=== PATIENT | female | born 1940 | race Hispanic/Latino ===

== ENCOUNTER 2017-10-09 02:59 | Inpatient (IN) | payer MEDICARE ==
[2017-10-09 03:00] VITALS: BMI 27.4
--- NOTE | 2017-10-09 03:23 | C.PDOC ---
History Of Present Illness The patient is brought to the ED by EMS for evaluation after she was found wandering the streets prior to arrival. Patient does not know why or how she ended up in the streets. She states she was watching a baseball game at [employer] when she asked someone to call a cab for her because she did not remember how to get home. Patient denies fever, chills, nausea, vomiting, and headache at this time. Patient admits she smokes one pack of cigarettes per day. Time Seen by Provider: 10/09/17 03:23 Chief Complaint (Nursing): Altered Mental Status History Per: Patient, EMS History/Exam Limitations: None Onset/Duration Of Symptoms: Unknown Onset Of Symptoms: Cannot Confirm Onset Current Symptoms Are (Timing): Still Present Usual Baseline: Unknown Exacerbating Factor(s): Unknown Use Of Anticoag/Antiplatelets: No Speech Is: Normal Severity: None Pain Scale Rating Of: 0 Recent travel outside of the [place]: No Additional History Per: Patient, EMS Associated Symptoms: denies: Fever, Chills, Vomiting Past Medical History Reviewed: Historical Data, Nursing Documentation, Vital Signs Vital Signs: Last Vital Signs Temp 98.7 F 10/09/17 05:35 Pulse 76 10/09/17 05:35 Resp 16 10/09/17 05:35 BP 123/82 10/09/17 05:35 Pulse Ox 97 10/09/17 06:24 - Medical History PMH: Anemia, Depression, Emphysema, Hiatal Hernia, HTN, Hypercholesterolemia, Rheumatoid Arthritis Denies: HIV, Chronic Kidney Disease Surgical History: Cholecystectomy - [facility] Procedures CLOSED RED-INT FIX FEMUR (10/15/14) INTRODUCTION OF SERUM/TOX/VACCINE INTO MUSCLE, PERC APPROACH (04/02/16) OTHER LOCAL DESTRUC SKIN (10/18/14) PACKED CELL TRANSFUSION (10/15/14) PHYSICAL THERAPY NEC (10/18/14) RECREATIONAL THERAPY (10/18/14) VACCINATION NEC (10/15/14) Family History: States: Unknown Family Hx - Social History Hx Tobacco Use: Yes Hx Alcohol Use: No Hx Substance Use: No - Immunization History Hx Tetanus Toxoid Vaccination: No Hx Influenza Vaccination: No Hx Pneumococcal Vaccination: Yes (2014) Review Of Systems Constitutional: Negative for: Fever, Chills Cardiovascular: Negative for: Chest Pain, Palpitations Respiratory: Negative for: Cough, Shortness of Breath Gastrointestinal: Negative for: Nausea, Vomiting, Abdominal Pain Skin: Negative for: Rash, Lesions, Jaundice, Bruising Neurological: Positive for: Other (found wandering in street ). Negative for: Weakness, Numbness, Headache Physical Exam - Physical Exam Appears: Non-toxic, No Acute Distress Skin: Warm, Dry Head: Normacephalic Eye(s): bilateral: Normal Inspection Oral Mucosa: Moist Teeth: No Normal Dentition (poor ) Neck: Supple Chest: Symmetrical, No Deformity, No Tenderness Cardiovascular: Rhythm Regular, No Murmur Respiratory: No Rales, No Rhonchi, No Wheezing Back: Other (kyphotic ) Extremity: Normal ROM, Capillary Refill (less than 2 seconds ) Neurological/Psych: Oriented x3 Gait: With Assistance (walker) ED Course And Treatment - Laboratory Results Result Diagrams: 10/09/17 04:23 08 04:23 O2 Sat by Pulse Oximetry: 97 (on RA) Pulse Ox Interpretation: Normal - Radiology CXR: Interpreted by Me, Viewed By Me CXR Interpretation: Yes: Other (kyphosis). No: Infiltrates, Fracture, Pnemothorax Progress Note: Bloodwork, urinalysis, CT Head, CXR, EKG ordered and reviewed. Disposition Counseled Patient/Family Regarding: Studies Performed, Diagnosis - Disposition Disposition Time: 03:23 Condition: FAIR Forms: [facility] (Thai) - Clinical Impression Clinical Impression: Forgetfulness - Scribe Statement The provider has reviewed the documentation as recorded by the Scribe (Brenda Sterling) Provider Attestation: All medical record entries made by the Scribe were at my direction and personally dictated by me. I have reviewed the chart and agree that the record accurately reflects my personal performance of the history, physical exam, medical decision making, and the department course for this patient. I have also personally directed, reviewed, and agree with the discharge instructions and disposition. Physician Patient Turnover Patient Signed Over To: Leonor Brock Handoff Comments: awaiting call back from daughter, and dispo
[2017-10-09 04:26] LABS: BASO # 0.1 K/uL (0.0-0.2); BASO % 0.5 % (0.0-2.0); HEMOGLOBIN 11.8 g/dL (11.0-16.0); LYMPH # 1.3 K/uL (1.0-4.3); LYMPH % 10.3 % (20.0-40.0); MEAN CORPUSCULAR HEMOGLOBIN 23.3 pg (27.0-31.0); MEAN CORPUSCULAR HGB CONC 31.9 g/dL (33.0-37.0); MEAN PLATELET VOLUME 8.9 fL (7.2-11.7); MONO # 0.8 K/uL (0.0-0.8); MONO % 5.9 % (0.0-10.0); NEUT # 10.8 K/uL (1.8-7.0); NEUT % 83.3 % (50.0-75.0); RBC 5.04 Mil/uL (3.80-5.20); RED CELL DISTRIBUTION WIDTH 16.5 % (11.5-14.5)
[2017-10-09 04:28] LABS: MEAN CELL VOLUME 73.2 fL (81.0-99.0)
[2017-10-09 04:35] LABS: INR 1.2
[2017-10-09 04:40] LABS: ALBUMIN 4.5 g/dL (3.5-5.0); ALT/SGPT 21 U/L (9-52); AST/SGOT 20 U/L (14-36); BLOOD UREA NITROGEN 20 mg/dL (7-17); CALCIUM 9.6 mg/dl (8.6-10.4); GFR NON-AFRICAN AMERICAN > 60
[2017-10-09 06:13] LABS: SQUAMOUS EPITHIAL 14 /hpf (0-5); URINE BACTERIA RARE (<OCC); URINE BILIRUBIN NEGATIVE (NEGATIVE); URINE BLOOD NEGATIVE (NEGATIVE); URINE CLARITY Hazy (Clear); URINE COLOR Yellow (YELLOW); URINE GLUCOSE (UA) NORMAL (Normal); URINE LEUKOCYTE ESTERASE 3+ Leu/uL (Negative); URINE PROTEIN 1+ mg/dL (NEGATIVE)
[2017-10-09 06:24] LABS: BARBITURATES, UR NEGATIVE (NEGATIVE); OPIATES, UR NEGATIVE (NEGATIVE); PHENCYCLIDINE, UR NEGATIVE (NEGATIVE)
[2017-10-09 07:02] LABS: BENZODIAZEPINES, UR POSITIVE (NEGATIVE)
[2017-10-09] MEDS ORDERED: Sodium Chloride 0.9% 250 ML IV ONE (08:19)
--- NOTE | 2017-10-09 09:36 | RAD ---
Date of service: 10/09/2017 PROCEDURE: CHEST RADIOGRAPH, 1 VIEW HISTORY: AMS COMPARISON: None available. FINDINGS: LUNGS: No acute pulmonary disease appreciated bilaterally. PLEURA: No pneumothorax or pleural fluid seen. CARDIOVASCULAR: Stable cardiomediastinal silhouette including retrocardiac density suggests of a large hiatal hernia. OSSEOUS STRUCTURES: No significant abnormalities. VISUALIZED UPPER ABDOMEN: Normal. OTHER FINDINGS: None. IMPRESSION: No interval acute cardiopulmonary disease. Large hiatal hernia reiterated.
--- NOTE | 2017-10-09 12:03 | CT ---
Date of service: 10/09/2017 PROCEDURE: CT HEAD WITHOUT CONTRAST. HISTORY: AMS COMPARISON: Noncontrast head CT 10/13/2011. TECHNIQUE: Axial computed tomography images were obtained through the head/brain without intravenous contrast. Radiation dose: Total exam DLP = 1004.25 mGy-cm. This CT exam was performed using one or more of the following dose reduction techniques: Automated exposure control, adjustment of the mA and/or kV according to patient size, and/or use of iterative reconstruction technique. FINDINGS: HEMORRHAGE: No intracranial hemorrhage. BRAIN: The ventricular sulcal and cisternal spaces are identified once again to be dilated however the sulci are not proportionally dilated relative to the ventricles, particularly the lateral ventricles, and may reflect an element normal pressure hydrocephalus. Central atrophy is also possible and is the differential diagnosis. Clinically correlate further. Nevertheless, adequate corticomedullary differentiation is reiterated and there is no cortical edema identified. 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 Posterior fossa contents are unremarkable including the brainstem. VENTRICLES: Unremarkable. No hydrocephalus. CALVARIUM: Unremarkable. PARANASAL SINUSES: Unremarkable as visualized. No significant inflammatory changes. MASTOID AIR CELLS: Unremarkable as visualized. No inflammatory changes. OTHER FINDINGS: None. IMPRESSION: No definite acute interval findings with age related neuro degenerative changes identified once again. Disproportionate ventricular volume may reflect an element normal pressure hydrocephalus and clinical correlation is recommend once again. Overall pattern does not appear significantly changed compared to 06/13/2011. Discordant preliminary report by Eloy worrell 10/09/2017.
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
[2017-10-09] MEDS: Sodium Chloride 0.9% 1,000 ML IV SCH ×2 (13:37→23:30)
[2017-10-09] MEDS ORDERED: Sodium Chloride 0.9% 1,000 ML ONE (13:38)
[2017-10-09 15:19] VITALS: RESP 20
[2017-10-09] MEDS: Lactobacillus Acidophilus 500 MU Cap PO SCH (18:11)
[2017-10-09 20:05] LABS: URINE BACTERIA RARE (<OCC); URINE BILIRUBIN NEGATIVE (NEGATIVE); URINE BLOOD NEGATIVE (NEGATIVE); URINE CLARITY Clear (Clear); URINE COLOR Yellow (YELLOW); URINE GLUCOSE (UA) NORMAL (Normal); URINE LEUKOCYTE ESTERASE NEG Leu/uL (Negative); URINE PROTEIN NEGATIVE (NEGATIVE)
[2017-10-10 07:47] LABS: BASO % 0.4 % (0.0-2.0); EOS % 0.8 % (0.0-4.0); HEMOGLOBIN 10.7 g/dL (11.0-16.0); LYMPH # 1.4 K/uL (1.0-4.3); LYMPH % 23.5 % (20.0-40.0); MEAN CELL VOLUME 74.3 fL (81.0-99.0); MEAN CORPUSCULAR HEMOGLOBIN 24.1 pg (27.0-31.0); MEAN CORPUSCULAR HGB CONC 32.4 g/dL (33.0-37.0); MEAN PLATELET VOLUME 9.6 fL (7.2-11.7); MONO # 0.5 K/uL (0.0-0.8); NEUT # 3.8 K/uL (1.8-7.0); NEUT % 66.3 % (50.0-75.0); NRBC % 0.1 % (0.0-2.0); RBC 4.43 Mil/uL (3.80-5.20); RED CELL DISTRIBUTION WIDTH 16.3 % (11.5-14.5)
[2017-10-10 07:48] LABS: WHITE BLOOD COUNT 5.8 K/uL (4.8-10.8)
[2017-10-10 07:51] LABS: ALB/GLOB RATIO 1.1 (1.0-2.1); ALBUMIN 3.8 g/dL (3.5-5.0); ALT/SGPT 21 U/L (9-52); AST/SGOT 23 U/L (14-36); BLOOD UREA NITROGEN 12 mg/dL (7-17); CALCIUM 8.7 mg/dl (8.6-10.4); GFR NON-AFRICAN AMERICAN > 60; HDL CHOLESTEROL 36 mg/dL (30-70)
[2017-10-10 07:57] LABS: LDL CHOLESTEROL 100 mg/dL (0-129)
[2017-10-10] MEDS ORDERED: Potassium Chloride 20 mEq ER Tab PO ONE (09:00)
--- NOTE | 2017-10-10 09:06 | CP.PCM.PN ---
<Mack Sheppard - Last Filed: 10/10/17 19:16> Subjective - Date & Time of Evaluation Date of Evaluation: 10/10/17 Time of Evaluation: 09:00 - Subjective Subjective: Medicine Progress Note for Mack Jaeger PGY-1 Patient was seen and examined at bedside this AM. No acute overnight events reported. Patient reiterated that she got confused when walking outside to a park and was unable to get back home. Patient states that she lives on her own at [facility] and that her daughter lives in [place]. Several attempts have been made to contact daughter with no success. No fevers or chills , headaches, dizziness, chest pain, palpitations, SOB, cough, abdominal pain, changes in vision or hearing. Objective - Vital Signs/Intake and Output Vital Signs (last 24 hours): Temp Pulse Resp BP Pulse Ox 98.4 F 78 20 146/83 96 10/10/17 08:09 10/10/17 08:09 10/10/17 08:09 10/10/17 08:09 10/10/17 08:09 Intake and Output: 10/10/17 10/10/17 06:59 18:59 Intake Total 540 Output Total 400 Balance 140 - Medications Medications: Current Medications Acetaminophen (Tylenol 325mg Tab) 650 mg PO Q6 PRN PRN Reason: Fever >100.4 F Ciprofloxacin (Cipro) 250 mg PO BID [facility] PRN Reason: Protocol Last Admin: 10/09/17 18:37 Dose: 250 mg Enoxaparin Sodium (Lovenox) 40 mg SC DAILY [facility] Sodium Chloride (Sodium Chloride 0.9%) 1,000 mls @ 100 mls/hr IV .Q10H [facility] Last Admin: 10/09/17 23:30 Dose: Not Given Lactobacillus Acidophilus (Bacid Acidophilus) 1 cap PO BID [facility] Last Admin: 10/09/17 18:11 Dose: 1 cap Nicotine (Nicoderm Cq) 1 patch TD DAILY [facility] Last Admin: 10/09/17 18:12 Dose: 1 patch Pneumococcal Polyvalent Vaccine (Pneumovax 23 Vaccine) 0.5 ml IM .ONCE ONE Stop: 10/10/17 10:01 Quetiapine Fumarate (Seroquel) 25 mg PO ONCE ONE Stop: 08/27/18 13:01 - Labs Labs: 10/10/17 07:15 10/10/17 07:15 PT 13.0 SECONDS (9.7-12.2) H 10/09/17 04:23 INR 1.2 10/09/17 04:23 APTT 36 SECONDS (21-34) H 10/09/17 04:23 - Constitutional Appears: Non-toxic, No Acute Distress - Head Exam Head Exam: ATRAUMATIC, NORMAL INSPECTION - Eye Exam Eye Exam: Normal appearance - ENT Exam ENT Exam: Mucous Membranes Moist Additional comments: Poor dentition - Neck Exam Neck Exam: Normal Inspection - Respiratory Exam Respiratory Exam: Clear to Ausculation Bilateral, NORMAL BREATHING PATTERN - Cardiovascular Exam Cardiovascular Exam: REGULAR RHYTHM, +S1, +S2 - GI/Abdominal Exam GI & Abdominal Exam: Soft, Normal Bowel Sounds. absent: Distended, Firm, Guarding, Rigid, Tenderness, Mass - Extremities Exam Extremities Exam: Normal Capillary Refill, Normal Inspection. absent: Pedal Edema, Tenderness - Neurological Exam Neurological Exam: Alert, Awake, Oriented x3 - Psychiatric Exam Psychiatric exam: Agitated - Skin Skin Exam: Dry, Intact, Normal Color, Warm Assessment and Plan - Assessment and Plan (Free Text) Assessment: 77 yo F with PMHx of HTN, HLD, multiple falls, PE who was brought in by ambulance for altered mental status. Patient was found wandering the streets. Plan: 1. Elder Safety Disposition - Patient's daughter has been called multiple times on multiple numbers (listed in chart). - Per H&P, [place] police went to daughter's house but no one was there, per ED physician. - [facility] contacted and stated that patient is not very well taken care off and they are unsure about her current living situation. - Has hx of Adult Protective Services called on her multiple times in the past, per group home commercial housekeeper. Pt has been living with daughter for past few weeks but is unreachable at this time. Because of all these reasons, there is concern that this may be an abandonment issues as oppose to patient getting lost. - Case management and social work is aware of case and on board - UDS negative on admission, negative BAL 2. Possible UTI - UA on admission: positive for WBC, LE, urobilinogen and SE -repeat UA negative - Elevated WBC count on admission - continue w/ Cipro 250 mg BID - urine culture via straight cath: multiple species -consider repeat cx - Tylenol prn for fever 3. Possible NPH - Initial CT head: no acute changes, disproportionate ventricular volume may suggest normal pressure hydrocephalus - Compared to CT from 2013, no significant increased in ventricles noted - Neurology consult (Dr. Celestin)on board 4. HTN - Unsure about pts pharmacy - Will consider starting amlodipine for now 5. COPD - CXR on admission showed no active cardiopulm dz. Hiatal hernia present - pulse ox 99% on RA 6. Anemia - Stable H&H today 7. Pulmonary nodules - Stable on repeat Ct scan on 03/2016 8. Tobacco abuse - Discussed the risks and adverse effects of tobacco use and recommended cessation 9. Hx of PE - no PE on repeat CT scan 10. PPX - Lovenox, SCDs - no indication for GI prophylaxis Case discussed with attending Dr. Hermilo Sheppard, PGY-1 <Vinny Akhtar - Last Filed: 10/13/17 13:56> Objective - Vital Signs/Intake and Output Vital Signs (last 24 hours): Temp Pulse Resp BP Pulse Ox 98.7 F 89 20 145/91 H 96 10/13/17 07:00 10/13/17 07:00 10/13/17 07:00 10/13/17 07:00 10/13/17 07:00 Intake and Output: 10/13/17 10/13/17 06:59 18:59 Intake Total 560 Balance 560 - Medications Medications: Current Medications Acetaminophen (Tylenol 325mg Tab) 650 mg PO Q6 PRN PRN Reason: Fever >100.4 F Ciprofloxacin (Cipro) 250 mg PO BID [facility] PRN Reason: Protocol Last Admin: 10/13/17 09:56 Dose: 250 mg Enoxaparin Sodium (Lovenox) 40 mg SC DAILY [facility] Last Admin: 10/13/17 09:57 Dose: 40 mg Lactobacillus Acidophilus (Bacid Acidophilus) 1 cap PO BID [facility] Last Admin: 10/13/17 09:57 Dose: 1 cap Nicotine (Nicoderm Cq) 1 patch TD DAILY [facility] Last Admin: 10/13/17 09:57 Dose: 1 patch - Labs Labs: 10/13/17 06:35 10/13/17 06:35 PT 13.0 SECONDS (9.7-12.2) H 10/09/17 04:23 INR 1.2 10/09/17 04:23 APTT 36 SECONDS (21-34) H 10/09/17 04:23 Attending/Attestation - Attestation I have personally seen and examined this patient.: Yes I have fully participated in the care of the patient.: Yes I have reviewed all pertinent clinical information, including history, physical exam and plan: Yes Notes (Text): Seen and examined by me,denies pain,Patient wants to go home. Able to answer date month and time. She is not able to tell where she was staying last few days. Denies headache,denies recent weakness We will try to reach her daughter. D/W CW Assessment and the plan discussed with the resident.I agree with the documentation
[2017-10-10] MEDS: Enoxaparin 40 mg Syringe SC SCH (09:15)
[2017-10-10] MEDS: Lactobacillus Acidophilus 500 MU Cap PO SCH ×2 (09:15→17:04)
[2017-10-10] MEDS: Sodium Chloride 0.9% 1,000 ML IV SCH (09:31)
[2017-10-10] MEDS ORDERED: Pneumococcal 23-Valent Vaccine IM ONE (10:00)
--- NOTE | 2017-10-10 10:55 | CP.PCM.CON ---
<Jaja Peralta - Last Filed: 10/10/17 15:48> History of Present Illness - History of Present Illness History of Present Illness: Neurology Consult Note - Dr Celestin Patient is 77 year old female with past medical history of hypertension, HLD, PE , multiple falls who was brought to the hospital via EMS after being found wondering the streets. Per ED documentation, patient was unable to get back home and could not remember why she was walking outside. Patient states that she lives alone and that her daughter lives in [place]. Several attempts have been made to contact the daughter with no success. Patient is a poor historian, she states that she often times doesn't remember things. When asked why she was in the hospital, she states that she might of fallen. She ambulates with a rolling walker, unsure for how long. She states that she has been incontinent of urine for "years". Denies any history of CVA in the past. Currently denies any headaches, dizziness, cp, palpitations, sob, abdominal pain , dysuria, diarrhea, constipation. Allergies: NKDA Medical History: Hypertension, PE, multiple falls, anemia, COPD, hiatal hernia Surgical History: Cholecystectomy, Hip surgery Social History: Current smoker. Smoked since age 14. Denies ETOH or drug use Past Patient History - Past Medical History & Family History Past Medical History?: Yes - Past Social History Smoking Status: Current Some Days Smoker Chewing Tobacco Use: No Cigar Use: No Alcohol: None Drugs: Denies Home Situation {Lives}: Senior Care - CARDIAC Hx Hypercholesterolemia: Yes Hx Hypertension: Yes - PULMONARY Hx Emphysema: Yes - NEUROLOGICAL Hx Neurological Disorder: No - HEENT Hx HEENT Problems: No - RENAL Hx Chronic Kidney Disease: No - ENDOCRINE/METABOLIC Hx Diabetes Mellitus Type 2: Yes - HEMATOLOGICAL/ONCOLOGICAL Hx Anemia: Yes Hx Human Immunodeficiency Virus (HIV): No - INTEGUMENTARY Hx Dermatological Problems: No - MUSCULOSKELETAL/RHEUMATOLOGICAL Hx Rheumatoid Arthritis: Yes - GASTROINTESTINAL Hx Gastrointestinal Disorders: Yes - GENITOURINARY/GYNECOLOGICAL Hx Genitourinary Disorders: No - PSYCHIATRIC Hx Depression: Yes Hx Substance Use: No - SURGICAL HISTORY Hx Cholecystectomy: Yes - ANESTHESIA Hx Anesthesia: Yes Hx Anesthesia Reactions: No Hx Malignant Hyperthermia: No Meds Allergies/Adverse Reactions: Allergies Allergy/AdvReac Type Severity Reaction Status Date / Time No Known Allergies Allergy Verified 10/09/17 03:11 - Medications Medications: Current Medications Acetaminophen (Tylenol 325mg Tab) 650 mg PO Q6 PRN PRN Reason: Fever >100.4 F Ciprofloxacin (Cipro) 250 mg PO BID [facility] PRN Reason: Protocol Last Admin: 10/10/17 09:15 Dose: 250 mg Enoxaparin Sodium (Lovenox) 40 mg SC DAILY [facility] Last Admin: 10/10/17 09:15 Dose: 40 mg Sodium Chloride (Sodium Chloride 0.9%) 1,000 mls @ 100 mls/hr IV .Q10H [facility] Last Admin: 10/10/17 09:31 Dose: Not Given Lactobacillus Acidophilus (Bacid Acidophilus) 1 cap PO BID [facility] Last Admin: 10/10/17 09:15 Dose: 1 cap Nicotine (Nicoderm Cq) 1 patch TD DAILY [facility] Last Admin: 10/10/17 09:16 Dose: 1 patch Quetiapine Fumarate (Seroquel) 25 mg PO ONCE ONE Stop: 10/10/17 13:01 Physical Exam - Constitutional Appears: No Acute Distress, Unkempt - Head Exam Head Exam: ATRAUMATIC, NORMAL INSPECTION - Eye Exam Eye Exam: PERRL - ENT Exam ENT Exam: Mucous Membranes Moist Additional comments: Poor dentition - Respiratory Exam Respiratory Exam: NORMAL BREATHING PATTERN - Cardiovascular Exam Cardiovascular Exam: REGULAR RHYTHM - GI/Abdominal Exam GI & Abdominal Exam: Soft - Neurological Exam Neurological exam: Alert (AAO x 3) - Psychiatric Exam Psychiatric exam: Normal Affect, Normal Mood Results - Vital Signs Recent Vital Signs: Last Vital Signs Temp 98.4 F 10/10/17 08:09 Pulse 78 10/10/17 08:09 Resp 20 10/10/17 08:09 BP 146/83 10/10/17 08:09 Pulse Ox 96 10/10/17 08:09 - Labs Result Diagrams: 10/10/17 07:15 10/10/17 07:15 Labs: Laboratory Results - last 24 hr 10/09/17 10/09/17 10/09/17 06:04 16:28 20:00 WBC RBC Hgb Hct MCV MCH MCHC RDW Plt Count MPV Neut % (Auto) Lymph % (Auto) [place] % (Auto) Eos % (Auto) Baso % (Auto) Neut # (Auto) Lymph # (Auto) [place] # (Auto) Eos # (Auto) Baso # (Auto) Sodium Potassium Chloride Carbon Dioxide Anion Gap BUN Creatinine Est GFR ( Amer) Est GFR (Non-Af Amer) POC Glucose (mg/dL) 84 Random Glucose Hemoglobin A1c Calcium Total Bilirubin AST ALT Alkaline Phosphatase Total Protein Albumin Globulin Albumin/Globulin Ratio Triglycerides Cholesterol LDL Cholesterol Direct HDL Cholesterol Free T4 TSH 3rd Generation Urine Color Yellow Yellow Urine Clarity Hazy Clear Urine pH 6.0 6.0 Ur Specific A[place]da 1.018 1.018 Urine Protein 1+ H Negative Urine Glucose (UA) Normal Normal Urine Ketones Trace Trace Urine Blood Negative Negative Urine Nitrate Negative Negative Urine Bilirubin Negative Negative Urine Urobilinogen 2.0 H 2.0 H Ur Leukocyte Esterase 3+ H Neg Urine WBC (Auto) 49 H 1 Urine RBC (Auto) 2 Urine WBC Clumps (Auto) Distillery Worker General Ur Squamous Epith Cells 14 H Ur Transition Epith Cell Distillery Worker General Ur Renal Epithelial Cell Distillery Worker General Calcium Carbonate Cryst Distillery Worker General Calcium Phos Ashley (Auto) Distillery Worker General Calcium Oxalate Crystal Distillery Worker General Leucine Crystals Distillery Worker General Cystine Crystals Distillery Worker General Uric Acid Crystals Distillery Worker General Triple Phos Crystals Distillery Worker General Tyrosine Crystals Distillery Worker General Other Crystals Distillery Worker General Amorphous Sediment Distillery Worker General Urine Bacteria Rare Rare Epithelial Casts (Auto) Distillery Worker General Fatty Casts Distillery Worker General Hyaline Casts Distillery Worker General Granular Casts (Auto) Distillery Worker General Waxy Casts Distillery Worker General Broad Casts Distillery Worker General RBC Casts Distillery Worker General WBC Casts Distillery Worker General Other Casts Distillery Worker General Urine Trichomonas Distillery Worker General Ur Yeast w Hyphae Distillery Worker General Urine Yeast (Budding) Distillery Worker General Urine Sperm (Auto) Distillery Worker General Ur Oval Fat Bodies Auto Distillery Worker General 10/09/17 10/10/17 10/10/17 21:02 07:15 07:15 WBC 5.8 D RBC 4.43 Hgb 10.7 L Hct 33.0 L MCV 74.3 L MCH 24.1 L MCHC 32.4 L RDW 16.3 H Plt Count 231 MPV 9.6 Neut % (Auto) 66.3 Lymph % (Auto) 23.5 [place] % (Auto) 9.0 Eos % (Auto) 0.8 Baso % (Auto) 0.4 Neut # (Auto) 3.8 Lymph # (Auto) 1.4 [place] # (Auto) 0.5 Eos # (Auto) 0.0 Baso # (Auto) 0.0 Sodium 139 Potassium 3.4 L Chloride 101 Carbon Dioxide 30 Anion Gap 12 BUN 12 Creatinine 0.4 L Est GFR ( Amer) > 60 Est GFR (Non-Af Amer) > 60 POC Glucose (mg/dL) 105 Random Glucose 100 Hemoglobin A1c Calcium 8.7 Total Bilirubin 0.7 AST 23 ALT 21 Alkaline Phosphatase 83 Total Protein 7.3 Albumin 3.8 Globulin 3.5 Albumin/Globulin Ratio 1.1 Triglycerides 61 D Cholesterol 159 LDL Cholesterol Direct 100 HDL Cholesterol 36 Free T4 TSH 3rd Generation 1.03 Urine Color Urine Clarity Urine pH Ur Specific Aroda Urine Protein Urine Glucose (UA) Urine Ketones Urine Blood Urine Nitrate Urine Bilirubin Urine Urobilinogen Ur Leukocyte Esterase Urine WBC (Auto) Urine RBC (Auto) Urine WBC Clumps (Auto) Ur Squamous Epith Cells Ur Transition Epith Cell Ur Renal Epithelial Cell Calcium Carbonate Cryst Calcium Phos Ashley (Auto) Calcium Oxalate Crystal Leucine Crystals Cystine Crystals Uric Acid Crystals Triple Phos Crystals Tyrosine Crystals Other Crystals Amorphous Sediment Urine Bacteria Epithelial Casts (Auto) Fatty Casts Hyaline Casts Granular Casts (Auto) Waxy Casts Broad Casts RBC Casts WBC Casts Other Casts Urine Trichomonas Ur Yeast w Hyphae Urine Yeast (Budding) Urine Sperm (Auto) Ur Oval Fat Bodies Auto 10/10/17 10/10/17 07:15 07:15 WBC RBC Hgb Hct MCV MCH MCHC RDW Plt Count MPV Neut % (Auto) Lymph % (Auto) [place] % (Auto) Eos % (Auto) Baso % (Auto) Neut # (Auto) Lymph # (Auto) [place] # (Auto) Eos # (Auto) Baso # (Auto) Sodium Potassium Chloride Carbon Dioxide Anion Gap BUN Creatinine Est GFR ( Amer) Est GFR (Non-Af Amer) POC Glucose (mg/dL) Random Glucose Hemoglobin A1c 5.5 Calcium Total Bilirubin AST ALT Alkaline Phosphatase Total Protein Albumin Globulin Albumin/Globulin Ratio Triglycerides Cholesterol LDL Cholesterol Direct HDL Cholesterol Free T4 1.37 TSH 3rd Generation Urine Color Urine Clarity Urine pH Ur Specific Aroda Urine Protein Urine Glucose (UA) Urine Ketones Urine Blood Urine Nitrate Urine Bilirubin Urine Urobilinogen Ur Leukocyte Esterase Urine WBC (Auto) Urine RBC (Auto) Urine WBC Clumps (Auto) Ur Squamous Epith Cells Ur Transition Epith Cell Ur Renal Epithelial Cell Calcium Carbonate Cryst Calcium Phos Ashley (Auto) Calcium Oxalate Crystal Leucine Crystals Cystine Crystals Uric Acid Crystals Triple Phos Crystals Tyrosine Crystals Other Crystals Amorphous Sediment Urine Bacteria Epithelial Casts (Auto) Fatty Casts Hyaline Casts Granular Casts (Auto) Waxy Casts Broad Casts RBC Casts WBC Casts Other Casts Urine Trichomonas Ur Yeast w Hyphae Urine Yeast (Budding) Urine Sperm (Auto) Ur Oval Fat Bodies Auto Assessment & Plan - Assessment and Plan (Free Text) Assessment: A/P: Patient is a 77 year old female with past medical history of hypertension, HLD, multiple falls, PE who was brought in by ambulance for altered mental status. Patient was found wandering the streets. Altered mental status likely due to NPH, toxic metabolic encephalopathy -Stable, afebrile -CT head showed disproportionate ventricular volume that may reflect an element of NPH (see full report) -Brain MRI showed ventricular dilatation is out of proportion to the sulcal prominence for age related volume loss (see full report) -Recommending Neurosurgical evaluation for possible shunt -Fall precautions -Replete electrolytes as needed Abnormal UA -Continue Ciprofloxacin 250mg PO BID -F/U urine culture Plan discussed with Dr Sabi Peralta DO PGY-2 <Manfred Celestin - Last Filed: 10/10/17 23:56> Meds - Medications Medications: Current Medications Acetaminophen (Tylenol 325mg Tab) 650 mg PO Q6 PRN PRN Reason: Fever >100.4 F Ciprofloxacin (Cipro) 250 mg PO BID [facility] PRN Reason: Protocol Last Admin: 10/10/17 17:04 Dose: 250 mg Enoxaparin Sodium (Lovenox) 40 mg SC DAILY [facility] Last Admin: 10/10/17 09:15 Dose: 40 mg Lactobacillus Acidophilus (Bacid Acidophilus) 1 cap PO BID [facility] Last Admin: 10/10/17 17:04 Dose: 1 cap Nicotine (Nicoderm Cq) 1 patch TD DAILY [facility] Last Admin: 10/10/17 09:16 Dose: 1 patch Results - Vital Signs Recent Vital Signs: Last Vital Signs Temp 99.7 F H 10/10/17 15:05 Pulse 109 H 10/10/17 15:05 Resp 20 10/10/17 15:05 BP 145/84 10/10/17 15:05 Pulse Ox 97 10/10/17 15:05 - Labs Result Diagrams: 10/10/17 16:32 10/10/17 07:15 Labs: Laboratory Results - last 24 hr 10/10/17 10/10/17 10/10/17 07:15 07:15 07:15 WBC 5.8 D RBC 4.43 Hgb 10.7 L Hct 33.0 L MCV 74.3 L MCH 24.1 L MCHC 32.4 L RDW 16.3 H Plt Count 231 MPV 9.6 Neut % (Auto) 66.3 Lymph % (Auto) 23.5 [place] % (Auto) 9.0 Eos % (Auto) 0.8 Baso % (Auto) 0.4 Neut # (Auto) 3.8 Lymph # (Auto) 1.4 [place] # (Auto) 0.5 Eos # (Auto) 0.0 Baso # (Auto) 0.0 Retic Count Sodium 139 Potassium 3.4 L Chloride 101 Carbon Dioxide 30 Anion Gap 12 BUN 12 Creatinine 0.4 L Est GFR ( Amer) > 60 Est GFR (Non-Af Amer) > 60 Random Glucose 100 Hemoglobin A1c 5.5 Calcium 8.7 Iron TIBC % Saturation Ferritin Total Bilirubin 0.7 AST 23 ALT 21 Alkaline Phosphatase 83 Total Protein 7.3 Albumin 3.8 Globulin 3.5 Albumin/Globulin Ratio 1.1 Triglycerides 61 D Cholesterol 159 LDL Cholesterol Direct 100 HDL Cholesterol 36 Vitamin B12 Free T4 TSH 3rd Generation 1.03 10/10/17 10/10/17 10/10/17 07:15 16:32 16:32 WBC 8.1 RBC 4.50 Hgb 10.7 L Hct 32.9 L MCV 73.1 L MCH 23.8 L MCHC 32.6 L RDW 16.5 H Plt Count 233 MPV 9.1 Neut % (Auto) 68.1 Lymph % (Auto) 21.0 [place] % (Auto) 9.3 Eos % (Auto) 0.7 Baso % (Auto) 0.9 Neut # (Auto) 5.5 Lymph # (Auto) 1.7 [place] # (Auto) 0.8 Eos # (Auto) 0.1 Baso # (Auto) 0.1 Retic Count 1.4 Sodium Potassium Chloride Carbon Dioxide Anion Gap BUN Creatinine Est GFR ( Amer) Est GFR (Non-Af Amer) Random Glucose Hemoglobin A1c Calcium Iron TIBC % Saturation Ferritin 8.3 Total Bilirubin AST ALT Alkaline Phosphatase Total Protein Albumin Globulin Albumin/Globulin Ratio Triglycerides Cholesterol LDL Cholesterol Direct HDL Cholesterol Vitamin B12 276 Free T4 1.37 TSH 3rd Generation 10/10/17 16:32 WBC RBC Hgb Hct MCV MCH MCHC RDW Plt Count MPV Neut % (Auto) Lymph % (Auto) [place] % (Auto) Eos % (Auto) Baso % (Auto) Neut # (Auto) Lymph # (Auto) [place] # (Auto) Eos # (Auto) Baso # (Auto) Retic Count Sodium Potassium Chloride Carbon Dioxide Anion Gap BUN Creatinine Est GFR ( Amer) Est GFR (Non-Af Amer) Random Glucose Hemoglobin A1c Calcium Iron 21 L TIBC 421 % Saturation 5 L Ferritin Total Bilirubin AST ALT Alkaline Phosphatase Total Protein Albumin Globulin Albumin/Globulin Ratio Triglycerides Cholesterol LDL Cholesterol Direct HDL Cholesterol Vitamin B12 Free T4 TSH 3rd Generation Attending/Attestation - Attestation I have personally seen and examined this patient.: Yes I have fully participated in the care of the patient.: Yes I have reviewed all pertinent clinical information: Yes Notes (Text): 10/10/17 23:54 The patient was seen and examined by me at bedside along with the resident today. She was awake, alert and oriented with some slight memory deficits. However, she had difficulty with finger to nose testing and has baseline difficulty with ambulation and complained of urinary incontinence. She has evidence of hydrocephalus, and may have dementia, ataxia and urinary incontinence as a result. I agree with the assessment and plan and recommend neurosurgical evaluation.
--- NOTE | 2017-10-10 14:34 | MRI ---
Date of service: 10/10/2017 PROCEDURE: MRI BRAIN WITHOUT CONTRAST HISTORY: normal pressure hydrocephalus COMPARISON: Noncontrast head CT from 10/09/2017 TECHNIQUE: Multiplanar, multisequence MR images of the brain were obtained without intravenous contrast enhancement. FINDINGS: HEMORRHAGE: None DWI: No evidence of an acute or early subacute infarction. BRAIN PARENCHYMA: Parada-white matter differentiation is preserved. There is no mass, mass effect or abnormal extra-axial fluid collection. There is no territorial infarction. VENTRICLES: There is moderate age-related global parenchymal volume loss and proportionate enlargement of the cortical sulci. Ventricular dilatation is out of proportion to the sulcal prominence. CRANIUM: There is normal bone marrow signal pattern. ORBITS: Grossly unremarkable. PARANASAL SINUSES/MASTOIDS: The paranasal sinuses are predominantly clear. There are trace mastoid effusions. VASCULAR SYSTEM: There are normal signal voids in the larger intracranial arteries. OTHER FINDINGS: None. IMPRESSION: No acute intracranial abnormality. Moderate age-related global parenchymal volume loss. Ventricular dilatation is out of proportion to the sulcal prominence for age-related volume loss, normal pressure hydrocephalus is a consideration. Please note normal pressure hydrocephalus is a clinical diagnosis for which clinical follow-up is advised.
[2017-10-10 16:36] LABS: BASO # 0.1 K/uL (0.0-0.2); BASO % 0.9 % (0.0-2.0); EOS # 0.1 K/uL (0.0-0.7); EOS % 0.7 % (0.0-4.0); HEMOGLOBIN 10.7 g/dL (11.0-16.0); LYMPH # 1.7 K/uL (1.0-4.3); MEAN CELL VOLUME 73.1 fL (81.0-99.0); MEAN CORPUSCULAR HEMOGLOBIN 23.8 pg (27.0-31.0); MEAN CORPUSCULAR HGB CONC 32.6 g/dL (33.0-37.0); MEAN PLATELET VOLUME 9.1 fL (7.2-11.7); MONO # 0.8 K/uL (0.0-0.8); MONO % 9.3 % (0.0-10.0); NEUT # 5.5 K/uL (1.8-7.0); NEUT % 68.1 % (50.0-75.0); RBC 4.5 Mil/uL (3.80-5.20); RED CELL DISTRIBUTION WIDTH 16.5 % (11.5-14.5); WHITE BLOOD COUNT 8.1 K/uL (4.8-10.8)
[2017-10-10 18:04] LABS: IRON 21 ug/dL (37-170)
[2017-10-10 18:21] LABS: % IRON SATURATION 5 (20-55); TOTAL IRON BINDING CAPACITY 421 ug/dL (250-450)
[2017-10-10 18:45] LABS: FERRITIN 8.3 ng/mL
--- NOTE | 2017-10-11 08:53 | CP.PCM.PN ---
<Mack Sheppard - Last Filed: 10/11/17 15:52> Subjective - Date & Time of Evaluation Date of Evaluation: 10/11/17 Time of Evaluation: 07:45 - Subjective Subjective: Medicine Progress Note for Dr. Hermilo Sheppard PGY-1 Patient seen and examined at bedside this AM. No acute overnight events reported. Doing well, AAOx3, expressing desire to go home. Denies headaches, dizziness, chest pain, palpitations, SOB, cough, abdominal pain, dysuria, or changes in bowel habits. No other acute complaints at this time. Objective - Vital Signs/Intake and Output Vital Signs (last 24 hours): Temp Pulse Resp BP Pulse Ox 98.4 F 95 H 20 129/67 97 10/11/17 07:48 10/11/17 07:48 10/11/17 07:48 10/11/17 07:48 10/11/17 07:48 Intake and Output: 10/11/17 10/11/17 06:59 18:59 Intake Total 1100 Balance 1100 - Medications Medications: Current Medications Acetaminophen (Tylenol 325mg Tab) 650 mg PO Q6 PRN PRN Reason: Fever >100.4 F Ciprofloxacin (Cipro) 250 mg PO BID [facility] PRN Reason: Protocol Last Admin: 10/10/17 17:04 Dose: 250 mg Enoxaparin Sodium (Lovenox) 40 mg SC DAILY [facility] Last Admin: 10/10/17 09:15 Dose: 40 mg Lactobacillus Acidophilus (Bacid Acidophilus) 1 cap PO BID [facility] Last Admin: 10/10/17 17:04 Dose: 1 cap Nicotine (Nicoderm Cq) 1 patch TD DAILY [facility] Last Admin: 10/10/17 09:16 Dose: 1 patch - Labs Labs: 10/10/17 16:32 10/10/17 07:15 PT 13.0 SECONDS (9.7-12.2) H 10/09/17 04:23 INR 1.2 10/09/17 04:23 APTT 36 SECONDS (21-34) H 10/09/17 04:23 - Constitutional Appears: Non-toxic, No Acute Distress - Head Exam Head Exam: ATRAUMATIC, NORMAL INSPECTION - Eye Exam Eye Exam: EOMI, Normal appearance - ENT Exam ENT Exam: Mucous Membranes Moist, Normal Exam Additional comments: Poor dentition - Neck Exam Neck Exam: Full ROM, Normal Inspection - Respiratory Exam Respiratory Exam: Clear to Ausculation Bilateral, NORMAL BREATHING PATTERN - Cardiovascular Exam Cardiovascular Exam: RRR, +S1, +S2 - GI/Abdominal Exam GI & Abdominal Exam: Soft, Normal Bowel Sounds. absent: Distended, Firm, Guarding, Rigid, Tenderness - Extremities Exam Extremities Exam: Full ROM, Normal Capillary Refill, Normal Inspection. absent : Pedal Edema, Tenderness - Back Exam Back Exam: NORMAL INSPECTION - Neurological Exam Neurological Exam: Alert, Awake, Oriented x3 - Psychiatric Exam Psychiatric exam: Normal Affect, Normal Mood - Skin Skin Exam: Dry, Intact, Normal Color, Warm Assessment and Plan - Assessment and Plan (Free Text) Assessment: 77 yo F with PMHx of HTN, HLD, multiple falls, PE who was brought in by ambulance for altered mental status. Patient was found wandering the streets. Plan: 1. Elder Safety Disposition - Patient's daughter has been called multiple times on multiple numbers (listed in chart). - Per H&P, [place] police went to daughter's house but no one was there, per ED physician. - [facility] Box contacted and stated that patient is not very well taken care off and they are unsure about her current living situation. - Has hx of Adult Protective Services called on her multiple times in the past, per correction hotel housekeeper. Pt has been living with daughter for past few weeks but is unreachable at this time. Because of all these reasons, there is concern that this may be an abandonment issues as oppose to patient getting lost. - Case management and social work is aware of case and on board - UDS negative on admission, negative BAL 2. Possible UTI - UA on admission: positive for WBC, LE, urobilinogen and SE -repeat UA negative - Elevated WBC count on admission - continue w/ Cipro 250 mg BID - urine culture via straight cath: multiple species -consider repeat cx - Tylenol prn for fever 3. 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 Celestin) - repeat electrolytes as needed 4. COPD - CXR on admission showed no active cardiopulm dz. Hiatal hernia present - pulse ox 99% on RA 5. Anemia - Stable H&H 6. Pulmonary nodules - Stable on repeat CT scan on 03/2016 7. Tobacco abuse - Discussed the risks and adverse effects of tobacco use and recommended cessation 8. Hx of PE - no PE on repeat CT scan 9. PPX - Lovenox, SCDs - Fall precautions - no indication for GI prophylaxis Case discussed with attending Dr. Hermilo Sheppard, PGY-1 <Vinny Akhtar - Last Filed: 10/13/17 19:14> Objective - Vital Signs/Intake and Output Vital Signs (last 24 hours): Temp Pulse Resp BP Pulse Ox 98.7 F 89 20 145/91 H 96 10/13/17 07:00 10/13/17 07:00 10/13/17 07:00 10/13/17 07:00 10/13/17 07:00 Intake and Output: 10/13/17 10/14/17 18:59 06:59 Intake Total 480 Balance 480 - Medications Medications: Current Medications Acetaminophen (Tylenol 325mg Tab) 650 mg PO Q6 PRN PRN Reason: Fever >100.4 F Ciprofloxacin (Cipro) 250 mg PO BID [facility] PRN Reason: Protocol Last Admin: 10/13/17 18:35 Dose: 250 mg Enoxaparin Sodium (Lovenox) 40 mg SC DAILY [facility] Last Admin: 10/13/17 09:57 Dose: 40 mg Lactobacillus Acidophilus (Bacid Acidophilus) 1 cap PO BID [facility] Last Admin: 10/13/17 18:35 Dose: 1 cap Nicotine (Nicoderm Cq) 1 patch TD DAILY [facility] Last Admin: 10/13/17 09:57 Dose: 1 patch - Labs Labs: 10/13/17 06:35 10/13/17 06:35 PT 13.0 SECONDS (9.7-12.2) H 10/09/17 04:23 INR 1.2 10/09/17 04:23 APTT 36 SECONDS (21-34) H 10/09/17 04:23 Attending/Attestation - Attestation I have personally seen and examined this patient.: Yes I have fully participated in the care of the patient.: Yes I have reviewed all pertinent clinical information, including history, physical exam and plan: Yes Notes (Text): Seen and examined patient is alert and oriented x3. Possible mild immediate memory loss. She states that her daughter was paying bills and taking care of her finance.She doesn't know her number.States that her daughter gave money to get taxi to go to her apartment/home? She doen't know there was no electricity last few weeks because her daughter didn't pay bills. We will follow with CW follow psychiatrist assessment Neurosurgery consult appreciated d/w resident I agree with the documentation
--- NOTE | 2017-10-11 08:56 | CARD ---
APPROVED REPORT Date of service: 10/09/2017 EKG Measurement Heart [id number] <Conclusion> Normal sinus rhythm Minimal voltage criteria for LVH, may be normal variant Borderline ECG
[2017-10-11 08:59] LABS: ALB/GLOB RATIO 1.1 (1.0-2.1); ALBUMIN 3.8 g/dL (3.5-5.0); ALT/SGPT 25 U/L (9-52); AST/SGOT 17 U/L (14-36); BLOOD UREA NITROGEN 10 mg/dL (7-17); GFR NON-AFRICAN AMERICAN > 60
[2017-10-11] MEDS ORDERED: Potassium Chloride 20 mEq ER Tab PO ONE (09:09)
--- NOTE | 2017-10-11 11:05 | CP.PCM.PN ---
<Jaja Peralta - Last Filed: 10/11/17 18:31> Subjective - Date & Time of Evaluation Date of Evaluation: 10/11/17 Time of Evaluation: 11:03 - Subjective Subjective: Neurology Progress Note - Dr Celestin Patient seen and examined at bedside. Per nursing no acute events overnight. Patient is doing well, pleasant. She is AAOx3. Wants to go home. Offers no other complaints at this time. Denies headaches, dizziness, cp, palpitations, sob, abdominal pain, dysuria, changes in bowel habits. Objective - Vital Signs/Intake and Output Vital Signs (last 24 hours): Temp Pulse Resp BP Pulse Ox 98.4 F 95 H 20 129/67 97 10/11/17 07:48 10/11/17 07:48 10/11/17 07:48 10/11/17 07:48 10/11/17 07:48 Intake and Output: 10/11/17 10/11/17 06:59 18:59 Intake Total 1100 Balance 1100 - Medications Medications: Current Medications Acetaminophen (Tylenol 325mg Tab) 650 mg PO Q6 PRN PRN Reason: Fever >100.4 F Ciprofloxacin (Cipro) 250 mg PO BID [facility] PRN Reason: Protocol Last Admin: 10/10/17 17:04 Dose: 250 mg Enoxaparin Sodium (Lovenox) 40 mg SC DAILY [facility] Last Admin: 10/10/17 09:15 Dose: 40 mg Lactobacillus Acidophilus (Bacid Acidophilus) 1 cap PO BID [facility] Last Admin: 10/10/17 17:04 Dose: 1 cap Nicotine (Nicoderm Cq) 1 patch TD DAILY [facility] Last Admin: 10/10/17 09:16 Dose: 1 patch - Labs Labs: 10/10/17 16:32 10/11/17 08:28 PT 13.0 SECONDS (9.7-12.2) H 10/09/17 04:23 INR 1.2 10/09/17 04:23 APTT 36 SECONDS (21-34) H 10/09/17 04:23 - Constitutional Appears: Non-toxic, No Acute Distress, Unkempt - Head Exam Head Exam: ATRAUMATIC, NORMAL INSPECTION - Eye Exam Eye Exam: EOMI, Normal appearance - ENT Exam ENT Exam: Mucous Membranes Moist - Respiratory Exam Respiratory Exam: Clear to Ausculation Bilateral, NORMAL BREATHING PATTERN. absent: Rales, Rhonchi, Wheezes - Cardiovascular Exam Cardiovascular Exam: REGULAR RHYTHM, +S1, +S2 - GI/Abdominal Exam GI & Abdominal Exam: Soft. absent: Tenderness - Neurological Exam Neurological Exam: Alert, Awake, Oriented x3 - Psychiatric Exam Psychiatric exam: Normal Affect, Normal Mood - Skin Skin Exam: Dry, Normal Color, Warm Assessment and Plan - Assessment and Plan (Free Text) Assessment: A/P: Patient is a 77 year old female with past medical history of hypertension, HLD, multiple falls, PE who was brought in by ambulance for altered mental status. Patient was found wandering the streets. Altered mental status likely due to NPH, toxic metabolic encephalopathy -Stable, afebrile -Patient with slight memory deficits, has baseline difficulty with ambulation and complained of urinary incontinence -CT head showed disproportionate ventricular volume that may reflect an element of NPH (see full report) -Brain MRI showed ventricular dilatation is out of proportion to the sulcal prominence for age related volume loss (see full report) -Recommending Neurosurgical evaluation for possible shunt -Fall precautions -Replete electrolytes as needed Abnormal UA -Continue Ciprofloxacin 250mg PO BID -Urine culture growing multiple species -F/U repeat UA and urine culture Vitamin B12 deficiency -B12 levels are low -Recommend repletion Plan discussed with Dr Sabi Peralta DO PGY-2 <Manfred Celestin - Last Filed: 10/13/17 20:49> Objective - Vital Signs/Intake and Output Vital Signs (last 24 hours): Temp Pulse Resp BP Pulse Ox 98.7 F 89 20 145/91 H 96 10/13/17 07:00 10/13/17 07:00 10/13/17 07:00 10/13/17 07:00 10/13/17 07:00 Intake and Output: 10/13/17 10/14/17 18:59 06:59 Intake Total 480 Balance 480 - Medications Medications: Current Medications Acetaminophen (Tylenol 325mg Tab) 650 mg PO Q6 PRN PRN Reason: Fever >100.4 F Ciprofloxacin (Cipro) 250 mg PO BID [facility] PRN Reason: Protocol Last Admin: 10/13/17 18:35 Dose: 250 mg Enoxaparin Sodium (Lovenox) 40 mg SC DAILY [facility] Last Admin: 10/13/17 09:57 Dose: 40 mg Lactobacillus Acidophilus (Bacid Acidophilus) 1 cap PO BID [facility] Last Admin: 10/13/17 18:35 Dose: 1 cap Nicotine (Nicoderm Cq) 1 patch TD DAILY [facility] Last Admin: 10/13/17 09:57 Dose: 1 patch - Labs Labs: 10/13/17 06:35 10/13/17 06:35 PT 13.0 SECONDS (9.7-12.2) H 10/09/17 04:23 INR 1.2 10/09/17 04:23 APTT 36 SECONDS (21-34) H 10/09/17 04:23 Attending/Attestation - Attestation I have personally seen and examined this patient.: Yes I have fully participated in the care of the patient.: Yes I have reviewed all pertinent clinical information, including history, physical exam and plan: Yes Notes (Text): 10/13/17 20:49 On my exam, the patient was unchanged from yesterday's evaluation.
[2017-10-11] MEDS: Lactobacillus Acidophilus 500 MU Cap PO SCH ×2 (11:20→17:25)
[2017-10-11] MEDS: Enoxaparin 40 mg Syringe SC SCH (11:21)
[2017-10-11] MEDS ORDERED: Potassium Chloride 20 mEq ER Tab PO STA (11:29)
--- NOTE | 2017-10-11 18:50 | CP.PCM.PN ---
Subjective - Date & Time of Evaluation Date of Evaluation: 10/11/17 Time of Evaluation: 18:46 - Subjective Subjective: discussed case with attending We feel she is incapable on making decision about surgery A shunt is reasonable, but need family to discuss this with Could not possibly do this elective type of surgery until sometime next week anyway Attending agreed to have family contact us if they make themselves available and if they wish surgery will schedule electively probably on another admission Objective - Vital Signs/Intake and Output Vital Signs (last 24 hours): Temp Pulse Resp BP Pulse Ox 98.4 F 95 H 20 129/67 97 10/11/17 07:48 10/11/17 07:48 10/11/17 07:48 10/11/17 07:48 10/11/17 07:48 Intake and Output: 10/11/17 10/11/17 06:59 18:59 Intake Total 1100 500 Balance 1100 500 - Medications Medications: Current Medications Acetaminophen (Tylenol 325mg Tab) 650 mg PO Q6 PRN PRN Reason: Fever >100.4 F Ciprofloxacin (Cipro) 250 mg PO BID [facility] PRN Reason: Protocol Last Admin: 10/11/17 17:25 Dose: 250 mg Enoxaparin Sodium (Lovenox) 40 mg SC DAILY [facility] Last Admin: 10/11/17 11:21 Dose: 40 mg Lactobacillus Acidophilus (Bacid Acidophilus) 1 cap PO BID [facility] Last Admin: 10/11/17 17:25 Dose: 1 cap Nicotine (Nicoderm Cq) 1 patch TD DAILY [facility] Last Admin: 10/11/17 11:20 Dose: 1 patch - Labs Labs: 10/10/17 16:32 10/11/17 08:28 PT 13.0 SECONDS (9.7-12.2) H 10/09/17 04:23 INR 1.2 10/09/17 04:23 APTT 36 SECONDS (21-34) H 10/09/17 04:23
[2017-10-12] MEDS: Lactobacillus Acidophilus 500 MU Cap PO SCH ×2 (10:13→17:41)
[2017-10-12] MEDS: Enoxaparin 40 mg Syringe SC SCH (10:13)
--- NOTE | 2017-10-12 10:43 | CP.PCM.PN ---
Subjective - Date & Time of Evaluation Date of Evaluation: 10/12/17 Time of Evaluation: 08:00 - Subjective Subjective: PGY-[address] Akhtar Patient seen and examined at bedside this AM. No acute events reported overnight. Denies any headache, dizziness, chest pain, abdominal pain, sob, cough, n/v/d, constipation, or dysuria. Reiterates desire to go home. No acute complaints at this time. Objective - Vital Signs/Intake and Output Vital Signs (last 24 hours): Temp Pulse Resp BP Pulse Ox 98.4 F 90 20 135/84 98 10/12/17 07:31 10/12/17 07:31 10/12/17 07:31 10/12/17 07:31 10/12/17 07:31 Intake and Output: 10/12/17 10/12/17 06:59 18:59 Intake Total 500 Output Total 300 Balance 200 - Medications Medications: Current Medications Acetaminophen (Tylenol 325mg Tab) 650 mg PO Q6 PRN PRN Reason: Fever >100.4 F Ciprofloxacin (Cipro) 250 mg PO BID [facility] PRN Reason: Protocol Last Admin: 10/12/17 10:13 Dose: 250 mg Enoxaparin Sodium (Lovenox) 40 mg SC DAILY [facility] Last Admin: 10/12/17 10:13 Dose: 40 mg Lactobacillus Acidophilus (Bacid Acidophilus) 1 cap PO BID [facility] Last Admin: 10/12/17 10:13 Dose: 1 cap Nicotine (Nicoderm Cq) 1 patch TD DAILY [facility] Last Admin: 10/12/17 10:13 Dose: 1 patch - Labs Labs: 10/10/17 16:32 10/11/17 08:28 PT 13.0 SECONDS (9.7-12.2) H 10/09/17 04:23 INR 1.2 10/09/17 04:23 APTT 36 SECONDS (21-34) H 10/09/17 04:23 - Constitutional Appears: Non-toxic, No Acute Distress, Confused - Head Exam Head Exam: ATRAUMATIC, NORMAL INSPECTION, NORMOCEPHALIC - Eye Exam Eye Exam: Normal appearance - ENT Exam ENT Exam: Mucous Membranes Moist, Normal Exam Additional comments: Poor dentition - Neck Exam Neck Exam: Normal Inspection - Respiratory Exam Respiratory Exam: Clear to Ausculation Bilateral, NORMAL BREATHING PATTERN. absent: Rales, Rhonchi, Wheezes - Cardiovascular Exam Cardiovascular Exam: RRR, +S1, +S2. absent: Gallop, Rubs, Murmur - GI/Abdominal Exam GI & Abdominal Exam: Soft, Normal Bowel Sounds. absent: Distended, Firm, Guarding, Tenderness, Rebound - Extremities Exam Extremities Exam: Normal Inspection - Back Exam Back Exam: NORMAL INSPECTION - Neurological Exam Neurological Exam: Alert, Awake, Oriented x3 - Skin Skin Exam: Dry, Intact, Normal Color, Warm Assessment and Plan - Assessment and Plan (Free Text) Assessment: 77 yo F with PMHx of HTN, HLD, multiple falls, PE who was brought in by ambulance for altered mental status. Patient was found wandering the streets. Plan: 1. Elder Safety Disposition - Patient's daughter has been called multiple times on multiple numbers (listed in chart). - Per H&P, [place] police went to daughter's house but no one was there, per ED physician. - [facility] Box contacted and stated that patient is not very well taken care off and they are unsure about her current living situation. - Has hx of Adult Protective Services called on her multiple times in the past, per halfway house detective. Pt has been living with daughter for past few weeks but is unreachable at this time. Because of all these reasons, there is concern that this may be an abandonment issues as oppose to patient getting lost. - f/u Case Management on safe dispo - UDS negative on admission, negative BAL 2. Possible UTI - UA on admission: positive for WBC, LE, urobilinogen and SE -repeat UA negative - Elevated WBC count on admission - continue w/ Cipro 250 mg BID - urine culture via straight cath: multiple species -consider repeat cx - Tylenol prn for fever 3. 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 Celestin) - repeat electrolytes as needed 4. COPD - CXR on admission showed no active cardiopulm dz. Hiatal hernia present - pulse ox 99% on RA 5. Anemia - Stable H&H 6. Pulmonary nodules - Stable on repeat CT scan on 03/2016 7. Tobacco abuse - Discussed the risks and adverse effects of tobacco use and recommended cessation 8. Hx of PE - no PE on repeat CT scan 9. PPX - Lovenox, SCDs - Fall precautions - no indication for GI prophylaxis Case discussed with attending Dr. Hermilo Sheppard, PGY-1
[2017-10-13 06:46] LABS: HEMOGLOBIN 11.1 g/dL (11.0-16.0); MEAN CELL VOLUME 74.2 fL (81.0-99.0); MEAN CORPUSCULAR HGB CONC 32.3 g/dL (33.0-37.0); MEAN PLATELET VOLUME 9.5 fL (7.2-11.7); RBC 4.63 Mil/uL (3.80-5.20); RED CELL DISTRIBUTION WIDTH 16.9 % (11.5-14.5); WHITE BLOOD COUNT 6.3 K/uL (4.8-10.8)
[2017-10-13 07:33] LABS: ALBUMIN 3.7 g/dL (3.5-5.0); ALT/SGPT 21 U/L (9-52); AST/SGOT 18 U/L (14-36); BLOOD UREA NITROGEN 13 mg/dL (7-17); CALCIUM 8.9 mg/dl (8.6-10.4); GFR NON-AFRICAN AMERICAN > 60
[2017-10-13] MEDS: Lactobacillus Acidophilus 500 MU Cap PO SCH ×2 (09:57→18:35)
[2017-10-13] MEDS: Enoxaparin 40 mg Syringe SC SCH (09:57)
--- NOTE | 2017-10-13 10:44 | CP.PCM.PN ---
<Jaja Peralta - Last Filed: 10/13/17 19:49> Subjective - Date & Time of Evaluation Date of Evaluation: 10/13/17 Time of Evaluation: 10:44 - Subjective Subjective: Neurology Progress Note - Sabi Patient seen and examined at bedside. Per nursing no acute events overnight. Multiple attempts have been made to contact the daughter with no success. Patient is pleasant and offers no complaints at this time. Denies headaches, dizziness, weakness, numbness/tingling. Objective - Vital Signs/Intake and Output Vital Signs (last 24 hours): Temp Pulse Resp BP Pulse Ox 98.7 F 89 20 145/91 H 96 10/13/17 07:00 10/13/17 07:00 10/13/17 07:00 10/13/17 07:00 10/13/17 07:00 Intake and Output: 10/13/17 10/13/17 06:59 18:59 Intake Total 560 Balance 560 - Medications Medications: Current Medications Acetaminophen (Tylenol 325mg Tab) 650 mg PO Q6 PRN PRN Reason: Fever >100.4 F Ciprofloxacin (Cipro) 250 mg PO BID [facility] PRN Reason: Protocol Last Admin: 10/13/17 09:56 Dose: 250 mg Enoxaparin Sodium (Lovenox) 40 mg SC DAILY [facility] Last Admin: 10/13/17 09:57 Dose: 40 mg Lactobacillus Acidophilus (Bacid Acidophilus) 1 cap PO BID [facility] Last Admin: 10/13/17 09:57 Dose: 1 cap Nicotine (Nicoderm Cq) 1 patch TD DAILY [facility] Last Admin: 10/13/17 09:57 Dose: 1 patch - Labs Labs: 10/13/17 06:35 10/13/17 06:35 PT 13.0 SECONDS (9.7-12.2) H 10/09/17 04:23 INR 1.2 10/09/17 04:23 APTT 36 SECONDS (21-34) H 10/09/17 04:23 - Additional Findings Additional findings: - Constitutional Appears: Non-toxic, No Acute Distress, Unkempt - Head Exam Head Exam: ATRAUMATIC, NORMAL INSPECTION - Eye Exam Eye Exam: EOMI, Normal appearance - ENT Exam ENT Exam: Mucous Membranes Moist - Respiratory Exam Respiratory Exam: Clear to Ausculation Bilateral, NORMAL BREATHING PATTERN. absent: Rales, Rhonchi, Wheezes - Cardiovascular Exam Cardiovascular Exam: REGULAR RHYTHM, +S1, +S2 - GI/Abdominal Exam GI & Abdominal Exam: Soft. absent: Tenderness - Neurological Exam Neurological Exam: Alert, Awake, Oriented x3 - Psychiatric Exam Psychiatric exam: Normal Affect, Normal Mood - Skin Skin Exam: Dry, Normal Color, Warm Assessment and Plan - Assessment and Plan (Free Text) Plan: A/P: Patient is a 77 year old female with past medical history of hypertension, HLD, multiple falls, PE who was brought in by ambulance for altered mental status. Patient was found wandering the streets. Altered mental status likely due to NPH, toxic metabolic encephalopathy -Stable, afebrile -Patient with slight memory deficits, has baseline difficulty with ambulation and complained of urinary incontinence -Mental status appears to be at baseline -CT head showed disproportionate ventricular volume that may reflect an element of NPH (see full report) -Brain MRI showed ventricular dilatation is out of proportion to the sulcal prominence for age related volume loss (see full report) -Neurosurgery recommending possible shunt outpatient, will need to discuss with family -Unable to get in contact with patients daughter -Psych eval pending for competency -Fall precautions -Replete electrolytes as needed Abnormal UA -Continue Ciprofloxacin 250mg PO BID -Urine culture growing multiple species Vitamin B12 deficiency -B12 levels are low -Recommend repletion Plan discussed with Dr Sabi Peralta DO PGY-2 <Manfred Celestin - Last Filed: 10/13/17 20:33> Objective - Vital Signs/Intake and Output Vital Signs (last 24 hours): Temp Pulse Resp BP Pulse Ox 98.7 F 89 20 145/91 H 96 10/13/17 07:00 10/13/17 07:00 10/13/17 07:00 10/13/17 07:00 10/13/17 07:00 Intake and Output: 10/13/17 10/14/17 18:59 06:59 Intake Total 480 Balance 480 - Medications Medications: Current Medications Acetaminophen (Tylenol 325mg Tab) 650 mg PO Q6 PRN PRN Reason: Fever >100.4 F Ciprofloxacin (Cipro) 250 mg PO BID [facility] PRN Reason: Protocol Last Admin: 10/13/17 18:35 Dose: 250 mg Enoxaparin Sodium (Lovenox) 40 mg SC DAILY [facility] Last Admin: 10/13/17 09:57 Dose: 40 mg Lactobacillus Acidophilus (Bacid Acidophilus) 1 cap PO BID [facility] Last Admin: 10/13/17 18:35 Dose: 1 cap Nicotine (Nicoderm Cq) 1 patch TD DAILY [facility] Last Admin: 10/13/17 09:57 Dose: 1 patch - Labs Labs: 10/13/17 06:35 10/13/17 06:35 PT 13.0 SECONDS (9.7-12.2) H 10/09/17 04:23 INR 1.2 10/09/17 04:23 APTT 36 SECONDS (21-34) H 10/09/17 04:23 Attending/Attestation - Attestation I have personally seen and examined this patient.: Yes I have fully participated in the care of the patient.: Yes I have reviewed all pertinent clinical information, including history, physical exam and plan: Yes Notes (Text): 10/13/17 20:32 When I examined the patient, she was unchanged from yesterday's exam. I will defer to neurosurgery for further management.
--- NOTE | 2017-10-13 16:00 | CP.PCM.PN ---
Subjective - Date & Time of Evaluation Date of Evaluation: 10/13/17 Time of Evaluation: 07:45 - Subjective Subjective: PGY-1 Medicine Progress Note for Dr. Akhtar Patient seen and examined at bedside this AM. No acute overnight events reported. Pt is pleasant, resting comfortably in bed. Attempts to reach daughter continue to be unsuccessful. No fevers/chills, headaches, dizziness, changes in vision or hearing, chest pain, abdominal pain, n/v/d, constipation, dysuria, or changes in stool. Objective - Vital Signs/Intake and Output Vital Signs (last 24 hours): Temp Pulse Resp BP Pulse Ox 98.7 F 89 20 145/91 H 96 10/13/17 07:00 10/13/17 07:00 10/13/17 07:00 10/13/17 07:00 10/13/17 07:00 Intake and Output: 10/13/17 10/13/17 06:59 18:59 Intake Total 560 480 Balance 560 480 - Medications Medications: Current Medications Acetaminophen (Tylenol 325mg Tab) 650 mg PO Q6 PRN PRN Reason: Fever >100.4 F Ciprofloxacin (Cipro) 250 mg PO BID [facility] PRN Reason: Protocol Last Admin: 10/13/17 09:56 Dose: 250 mg Enoxaparin Sodium (Lovenox) 40 mg SC DAILY [facility] Last Admin: 10/13/17 09:57 Dose: 40 mg Lactobacillus Acidophilus (Bacid Acidophilus) 1 cap PO BID [facility] Last Admin: 10/13/17 09:57 Dose: 1 cap Nicotine (Nicoderm Cq) 1 patch TD DAILY [facility] Last Admin: 10/13/17 09:57 Dose: 1 patch - Labs Labs: 10/13/17 06:35 10/13/17 06:35 PT 13.0 SECONDS (9.7-12.2) H 10/09/17 04:23 INR 1.2 10/09/17 04:23 APTT 36 SECONDS (21-34) H 10/09/17 04:23 - Constitutional Appears: Non-toxic, No Acute Distress, Confused - Head Exam Head Exam: ATRAUMATIC, NORMAL INSPECTION, NORMOCEPHALIC - Eye Exam Eye Exam: EOMI, Normal appearance Pupil Exam: NORMAL ACCOMODATION - ENT Exam ENT Exam: Mucous Membranes Moist, Normal Exam - Neck Exam Neck Exam: Normal Inspection - Respiratory Exam Respiratory Exam: Clear to Ausculation Bilateral, NORMAL BREATHING PATTERN - Cardiovascular Exam Cardiovascular Exam: RRR, +S1, +S2 - GI/Abdominal Exam GI & Abdominal Exam: Soft, Normal Bowel Sounds. absent: Distended, Firm, Guarding, Rigid, Tenderness - Extremities Exam Extremities Exam: Normal Capillary Refill, Normal Inspection - Back Exam Back Exam: NORMAL INSPECTION - Neurological Exam Neurological Exam: Alert, Awake, CN II-XII Intact, Oriented x3 - Psychiatric Exam Psychiatric exam: Depressed - Skin Skin Exam: Dry, Intact, Normal Color, Warm Assessment and Plan - Assessment and Plan (Free Text) Assessment: Patient is a 77 yo F with PMHx of HTN, HLD, multiple falls, PE who was brought in by ambulance for altered mental status. Patient was found wandering the streets. Plan: 1. Elder Safety Disposition - Patient's daughter has been called multiple times on multiple numbers (listed in chart). - Per H&P, [place] police went to daughter's house but no one was there, per ED physician. - [facility] contacted and stated that patient is not very well taken care off and they are unsure about her current living situation. - Has hx of Adult Protective Services called on her multiple times in the past, per intermediate warehouse delivery manager. Pt has been living with daughter for past few weeks but is unreachable at this time. Because of all these reasons, there is concern that this may be an abandonment issues as oppose to patient getting lost. - f/u Case Management on safe dispo - UDS negative on admission, negative BAL 2. Possible UTI - UA on admission: positive for WBC, LE, urobilinogen and SE -repeat UA negative - Elevated WBC count on admission - continue w/ Cipro 250 mg BID - urine culture via straight cath: multiple species -consider repeat cx - Tylenol prn for fever 3. 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 Celestin) - CT head: disproportionate ventricular volume that may reflect an element of NPH (see full report) - Brain MRI: ventricular dilatation is out of proportion to the sulcal prominence for age related volume loss (see full report) - Neurosurgery recs appreciated (Dr. Vuong) -shunt reasonable but need family to discuss -does not feel pt is capable of making decision on her own -f/u Psych eval (Dr. Burger) for competency - repeat electrolytes as needed 4. COPD - CXR on admission showed no active cardiopulm dz. Hiatal hernia present - pulse ox 99% on RA 5. Anemia - Stable H&H 6. Pulmonary nodules - Stable on repeat CT scan on 03/2016 7. Tobacco abuse - Discussed the risks and adverse effects of tobacco use and recommended cessation 8. Hx of PE - no PE on repeat CT scan 9. PPX - Lovenox, SCDs - Fall precautions - no indication for GI prophylaxis Case discussed with attending Dr. Hermilo Sheppard, PGY-1
[2017-10-14 07:22] LABS: HEMOGLOBIN 10.9 g/dL (11.0-16.0); MEAN CELL VOLUME 74.8 fL (81.0-99.0); MEAN CORPUSCULAR HEMOGLOBIN 24.1 pg (27.0-31.0); MEAN CORPUSCULAR HGB CONC 32.2 g/dL (33.0-37.0); MEAN PLATELET VOLUME 9.6 fL (7.2-11.7); RBC 4.52 Mil/uL (3.80-5.20); RED CELL DISTRIBUTION WIDTH 16.4 % (11.5-14.5); WHITE BLOOD COUNT 5.9 K/uL (4.8-10.8)
[2017-10-14 07:30] LABS: ALB/GLOB RATIO 1.1 (1.0-2.1); ALBUMIN 4.1 g/dL (3.5-5.0); ALT/SGPT 24 U/L (9-52); AST/SGOT 29 U/L (14-36); BLOOD UREA NITROGEN 13 mg/dL (7-17); CALCIUM 9.2 mg/dl (8.6-10.4); GFR NON-AFRICAN AMERICAN > 60
[2017-10-14 08:52] VITALS: BP 128/90; PULSE 91; TEMP 98.9; O2SAT 96
[2017-10-14] MEDS: Lactobacillus Acidophilus 500 MU Cap PO SCH (10:30)
[2017-10-14] MEDS: Enoxaparin 40 mg Syringe SC SCH (10:30)
--- NOTE | 2017-10-14 12:01 | PCM.PSYCH ---
Initial Psychiatric Evaluation - Initial Psychiatric Evaluation Type of Admission: Voluntary Legal Status: Capacity Chief Complaint (in patient's own words): I am feeling fili.' History of Present Illness and Precipitating Events: H&P: 77 year old female with past medical history of HTN, anemia, depression, anxiety, COPD, hiatal hernia, history of PE in 2015 resolved in 03/2016 as seen on repeat CTA chest, stable pulmonary nodules, hx of multiple falls was brought to ED by ambulance after she was found wandering in the streets overnight. Patient states that she went out for a walk late in the afternoon yesterday from her [facility] home and then forgot how to get back. She was found wandering the streets in [place]. She was consulted by the psychiatry team today. Pt denies any past history of any inpatient psychiatric hospitalizations and denies any history of follow up with any psychiatrist. Pt at time of contact appeared anxious and little depressed. As per the the staff, she is much better than few days ago, when she was brought in the hospital. Patient reports some anxiety but denies any feelings of hopelessness and helplessness. She denies any manic or psychotic symptoms. Current Medications: Active Medications Generic Name Dose Route Start Last Admin Trade Name Freq PRN Reason Stop Dose Admin Acetaminophen 650 mg 10/09/17 12:53 Tylenol 325mg Tab PO Q6 PRN Fever >100.4 F Ciprofloxacin 250 mg 10/09/17 18:00 10/13/17 18:35 Cipro PO 250 mg BID CHACHO Administration Protocol Enoxaparin Sodium 40 mg 10/10/17 10:00 10/13/17 09:57 Lovenox SC 40 mg DAILY CHACHO Administration Lactobacillus Acidophilus 1 cap 10/09/17 18:00 10/13/17 18:35 Bacid Acidophilus PO 1 cap BID CHACHO Administration Nicotine 1 patch 10/09/17 16:30 10/13/17 09:57 Nicoderm Cq TD 1 patch DAILY CHACHO Administration Past Psychiatric History - Past Psychiatric History Previous Treatment History: None Pertinent Medical Hx (Current Medical&Sleep Prob, Allergies): Allergies Allergy/AdvReac Type Severity Reaction Status Date / Time No Known Allergies Allergy Verified 10/09/17 03:11 Acetaminophen [Tylenol 325mg tab] 650 mg PO Q4 PRN #0 tab 04/05/16 Enoxaparin [Lovenox] 40 mg SC DAILY syr 04/05/16 Ketorolac [Toradol] 30 mg IVP Q6 PRN #0 vial 04/05/16 Sodium Chloride for Inhalation [Sodium Chloride 3% for Inhalation] 4 ml IH ONCE PRN #0 vial.neb 04/05/16 cefTRIAXone 1 gm [Rocephin 1 gram IVPB] 1 gm IVPB DAILY #14 bag 04/05/16 traMADol [Ultram] 50 mg PO Q6 PRN #0 tab 04/05/16 Levofloxacin [Levaquin] 500 mg PO DAILY #5 tablet 04/13/16 traMADol [Ultram] 50 mg PO TID PRN #12 tab 04/13/16 Review of Systems - Review of Systems All systems: reviewed and no additional remarkable complaints except - Psychiatric Psychiatric: Anxiety. absent: Auditory Hallucinations, Suicidal Ideation Mental Status Examination - Personal Presentation Personal Presentation: Looks stated age - Affect Affect: Constricted, Depressed - Motor Activity Motor Activity: Calm - Reliability in Providing Information Reliability in Providing Information: Good - Speech Speech: Organized - Mood Mood: Anxious - Formal Thought Process Formal Thought Process: No Impairment - Obsessions/Compulsions Obsessions: No Compulsions: No - Cognitive Functions Orientation: Person, Place, Situation, Time Sensorium: Alert Attention/Concentration: Attentive Abstract Thinking: [place] Estimate of Intelligence: Below average Judgement: Imparied, as evidence by: Poor judgement, Imparied, as evidence by: Lack of insight into illness - Risk Risk: Diminished functioning - Limitations Limitations: Living alone DSM 5 DX - DSM 5 DSM 5 Diagnosis: Delirium due to medical condition - Recommended/Plan of Treatment Treatment Recommendations and Plan of Treatment: Delirium due to medical condition Pt appers much better now. She is psychiatrically stable and clear.
--- NOTE | 2017-10-14 14:54 | CP.PCM.DIS ---
Provider - Provider Date of Admission: 10/12/17 13:23 Attending physician: Vinny Akhtar MD Time Spent in preparation of Discharge (in minutes): 40 Hospital Course - Lab Results Lab Results: Micro Results 10/09/17 10:16 Urine Urine Culture - Final MULTIPLE SPECIES. SUGGEST REPEAT SPECIMEN. Most Recent Lab Values WBC 5.9 K/uL (4.8-10.8) 10/14/17 06:48 RBC 4.52 Mil/uL (3.80-5.20) 10/14/17 06:48 Hgb 10.9 g/dL (11.0-16.0) L 10/14/17 06:48 Hct 33.8 % (34.0-47.0) L 10/14/17 06:48 MCV 74.8 fL (81.0-99.0) L 10/14/17 06:48 MCH 24.1 pg (27.0-31.0) L 10/14/17 06:48 MCHC 32.2 g/dL (33.0-37.0) L 10/14/17 06:48 RDW 16.4 % (11.5-14.5) H 10/14/17 06:48 Plt Count 229 K/uL (130-400) 10/14/17 06:48 MPV 9.6 fL (7.2-11.7) 10/14/17 06:48 Neut % (Auto) 68.1 % (50.0-75.0) 10/10/17 16:32 Lymph % (Auto) 21.0 % (20.0-40.0) 10/10/17 16:32 Maries % (Auto) 9.3 % (0.0-10.0) 10/10/17 16:32 Eos % (Auto) 0.7 % (0.0-4.0) 10/10/17 16:32 Baso % (Auto) 0.9 % (0.0-2.0) 10/10/17 16:32 Neut # (Auto) 5.5 K/uL (1.8-7.0) 10/10/17 16:32 Lymph # (Auto) 1.7 K/uL (1.0-4.3) 10/10/17 16:32 Maries # (Auto) 0.8 K/uL (0.0-0.8) 10/10/17 16:32 Eos # (Auto) 0.1 K/uL (0.0-0.7) 10/10/17 16:32 Baso # (Auto) 0.1 K/uL (0.0-0.2) 10/10/17 16:32 Differential Comment 10/09/17 04:23 Retic Count 1.4 % (0.5-1.5) 10/10/17 16:32 PT 13.0 SECONDS (9.7-12.2) H 10/09/17 04:23 INR 1.2 10/09/17 04:23 APTT 36 SECONDS (21-34) H 10/09/17 04:23 Sodium 139 mmol/L (132-148) 10/14/17 06:48 Potassium 3.8 mmol/L (3.6-5.2) 10/14/17 06:48 Chloride 98 mmol/L (98-107) 10/14/17 06:48 Carbon Dioxide 31 mmol/L (22-30) H 10/14/17 06:48 Anion Gap 13 (10-20) 10/14/17 06:48 BUN 13 mg/dL (7-17) 10/14/17 06:48 Creatinine 0.4 mg/dL (0.7-1.2) L 10/14/17 06:48 Est GFR ( Amer) > 60 10/14/17 06:48 Est GFR (Non-Af Amer) > 60 10/14/17 06:48 POC Glucose (mg/dL) 94 mg/dL (65-110) 10/14/17 11:18 Random Glucose 109 mg/dL (65-105) H 10/14/17 06:48 Hemoglobin A1c 5.5 % (4.2-6.5) 10/10/17 07:15 Calcium 9.2 mg/dl (8.6-10.4) 10/14/17 06:48 Phosphorus 3.8 mg/dL (2.5-4.5) 10/14/17 06:48 Magnesium 1.8 mg/dL (1.6-2.3) 10/14/17 06:48 Iron 21 ug/dL (37-170) L 10/10/17 16:32 TIBC 421 ug/dL (250-450) 10/10/17 16:32 % Saturation 5 (20-55) L 10/10/17 16:32 Ferritin 8.3 ng/mL 10/10/17 16:32 Total Bilirubin 0.6 mg/dL (0.2-1.3) 10/14/17 06:48 AST 29 U/L (14-36) 10/14/17 06:48 ALT 24 U/L (9-52) 10/14/17 06:48 Alkaline Phosphatase 91 U/L (38-126) 10/14/17 06:48 Total Protein 7.9 g/dL (6.3-8.3) 10/14/17 06:48 Albumin 4.1 g/dL (3.5-5.0) 10/14/17 06:48 Globulin 3.8 gm/dL (2.2-3.9) 10/14/17 06:48 Albumin/Globulin Ratio 1.1 (1.0-2.1) 10/14/17 06:48 Triglycerides 61 mg/dL (0-149) D 10/10/17 07:15 Cholesterol 159 mg/dL (0-199) 10/10/17 07:15 LDL Cholesterol Direct 100 mg/dL (0-129) 10/10/17 07:15 HDL Cholesterol 36 mg/dL (30-70) 10/10/17 07:15 Vitamin B12 276 pg/mL (239-931) 10/10/17 16:32 RBC Folate 692 ng/mL RBC (>280) 10/10/17 16:32 Free T4 1.37 ng/dL (0.78-2.19) 10/10/17 07:15 TSH 3rd Generation 1.03 mIU/L (0.46-4.68) 10/10/17 07:15 Urine Color Yellow (YELLOW) 10/09/17 20:00 Urine Clarity Clear (Clear) 10/09/17 20:00 Urine pH 6.0 (5.0-8.0) 10/09/17 20:00 Ur Specific [place] 1.018 (1.003-1.030) 10/09/17 20:00 Urine Protein Negative mg/dL (NEGATIVE) 10/09/17 20:00 Urine Glucose (UA) Normal mg/dL (Normal) 10/09/17 20:00 Urine Ketones Trace mg/dL (NEGATIVE) 10/09/17 20:00 Urine Blood Negative (NEGATIVE) 10/09/17 20:00 Urine Nitrate Negative (NEGATIVE) 10/09/17 20:00 Urine Bilirubin Negative (NEGATIVE) 10/09/17 20:00 Urine Urobilinogen 2.0 mg/dL (0.2-1.0) H 10/09/17 20:00 Ur Leukocyte Esterase Neg Srini/uL (Negative) 10/09/17 20:00 Urine WBC (Auto) 1 /hpf (0-5) 10/09/17 20:00 Urine RBC (Auto) 2 /hpf (0-3) 10/09/17 06:04 Urine WBC Clumps (Auto) [employer] 10/09/17 06:04 Ur Squamous Epith Cells 14 /hpf (0-5) H 10/09/17 06:04 Ur Transition Epith Cell [employer] 10/09/17 06:04 Ur Renal Epithelial Cell [employer] 10/09/17 06:04 Calcium Carbonate Cryst [employer] 10/09/17 06:04 Calcium Phos Ashley (Auto) [employer] 10/09/17 06:04 Calcium Oxalate Crystal [employer] 10/09/17 06:04 Leucine Crystals [employer] 10/09/17 06:04 Cystine Crystals [employer] 10/09/17 06:04 Uric Acid Crystals [employer] 10/09/17 06:04 Triple Phos Crystals [employer] 10/09/17 06:04 Tyrosine Crystals [employer] 10/09/17 06:04 Other Crystals [employer] 10/09/17 06:04 Amorphous Sediment [employer] 10/09/17 06:04 Urine Bacteria Rare (<OCC) 10/09/17 20:00 Epithelial Casts (Auto) [employer] 10/09/17 06:04 Fatty Casts [employer] 10/09/17 06:04 Hyaline Casts [employer] 10/09/17 06:04 Granular Casts (Auto) [employer] 10/09/17 06:04 Waxy Casts [employer] 10/09/17 06:04 Broad Casts [employer] 10/09/17 06:04 RBC Casts [employer] 10/09/17 06:04 WBC Casts [employer] 10/09/17 06:04 Other Casts [employer] 10/09/17 06:04 Urine Trichomonas [employer] 10/09/17 06:04 Ur Yeast w Hyphae [employer] 10/09/17 06:04 Urine Yeast (Budding) [employer] 10/09/17 06:04 Urine Sperm (Auto) [employer] 10/09/17 06:04 Ur Oval Fat Bodies Auto [employer] 10/09/17 06:04 Urine Opiates Screen Negative (NEGATIVE) 10/09/17 06:04 Urine Methadone Screen Negative (NEGATIVE) 10/09/17 06:04 Ur Barbiturates Screen Negative (NEGATIVE) 10/09/17 06:04 Ur Phencyclidine Scrn Negative (NEGATIVE) 10/09/17 06:04 Ur Amphetamines Screen Negative (NEGATIVE) 10/09/17 06:04 U Benzodiazepines Scrn Positive (NEGATIVE) 10/09/17 06:04 U Oth Cocaine Metabols Negative (NEGATIVE) 10/09/17 06:04 U Cannabinoids Screen Negative (NEGATIVE) 10/09/17 06:04 Alcohol, Quantitative < 10 mg/dl (0-10) 10/09/17 04:23 - Hospital Course Hospital Course: HPI: 77 year old female with past medical history of HTN, anemia, depression, anxiety , COPD, hiatal hernia, history of PE in 2016 resolved in 03/2016 as seen on repeat CTA chest, stable pulmonary nodules, hx of multiple falls was brought to ED by ambulance after she was found wandering in the streets overnight. Patient states that she went out for a walk late in the afternoon yesterday from her [facility] home and then forgot how to get back. She was found wandering the streets in [place]. Patient states that she is a resident at [facility] in [place]. Patient denies having any loss of consciousness, denies having any headache, weakness, confusion, numbness , tingling, recent falls. Patient's next of kin is her daughter, Bridget who lives in [place]. Multiple attempts were made to contact the daughter without any avail. Per ED physician, Dr. Brock, [place] police went to daughter's house but she was not there. [facility] was called and I spoke with Riky the [facility] bath house attendant. He was able to give me two other contact numbers for the daughter (Bridget Huerta) Numbers provided by [facility], listed below: (left message on this number) Per the manager mba, patient's apartment's power was switched off a few weeks ago. Since then, she has been living with her daughter. Patient may have been returned to the apartment two days ago though, but he is unsure. Per the manager mba , patient is not well taken care off. She has had Adult Protective Services called multiple times for her. However, due to her reliable mental status and ability to make decisions, no actions have been taken. Hospital Course: Patient was BIBEMS on 10/09/17 after she was found wandering in the streets, confused. She was admitted due unsafe discharge without family present, mild UTI , mildly elevated BUN and WBC levels. No acute events were reported during the course of her hospital admission. UA on admission was positive for WBC, LE, urobilinogen. UCx revealed multiple species. Patient was started on ciprofloxacin 250 mg PO BID. Repeat UA was negative. Patient remained afebrile during course of admission, WBC levels normalized. Neurology (Dr. Celestin) was consulted for altered mental status. CT head was performed that showed disproportionate ventricular volume reflecting an element of NPH. Brain MRI showed ventricular dilatation out of proportion to the sulcal prominence. Neurosurgery (Dr. Vuong) was consulted for findings suggestive of hydrocephalus. Recommendations for shunt were made in the outpatient setting; however, neurosurgery felt patient was incapable of making decision about surgery without family present, given her confusion. Multiple attempts were made to reach out to patient's daughter during hospital course, all unsuccessful. Psychiatry was consulted to assess mental capacity. Patient's daughter came into hospital on 10/14/2017. She was extensively informed of the patient's hospital course workup, including image findings and recommendations. All questions were answered, and daughter expressed desire for patient to return home with her. Patient is stable for discharge home, per Dr. Akhtar. Patient and daughter were instructed to follow up with Neurosurgery, Dr. Vuong as outpatient next week. Referral is provided for patient. Patient and daughter also instructed to follow up with primary care doctor upon discharge for home medication consolidation and continued care. Patient given script for ciprofloxacin 250 mg orally twice per day for 5 more days. Patient also given script for Nicoderm patch once daily for a total of 30 days. If symptoms worsen, please return to the ED. Discharge Exam - Head Exam Head Exam: ATRAUMATIC, NORMAL INSPECTION, NORMOCEPHALIC Discharge Plan - Discharge Medications Prescriptions: Ciprofloxacin [Cipro] 250 mg PO BID #10 tab Nicotine 7 mg/24 hr [Nicoderm CQ] 1 patch TD DAILY #30 patch - Follow Up Plan Condition: FAIR Disposition: HOME/ ROUTINE Additional Instructions: Patient is stable for discharge home, per Dr. Akhtar. Patient instructed to follow up with Neurosurgery, Dr. Vuong as outpatient next week. Referral is provided for patient. Patient also instructed to follow up with primary care doctor upon discharge for home medication consolidation and continued care. Patient given script for ciprofloxacin 250 mg orally twice per day for 5 more days. Patient also given script for Nicoderm patch once daily for a total of 30 days. If symptoms worsen, please return to the ED.
== END 2017-10-14 17:00 | disposition home or self-care (01) | DRG 689 ==
LOC: C.ER 02:59 → C.9E 10:37 → C.3T 13:58 → OBSVTOIN 10-12 13:23
PROVIDERS: ADMIT Family Medicine; ATTEND Internal Medicine
DX: N39.0 Urinary tract infection, site not specified (principal); G92 Toxic encephalopathy; F05 Delirium due to known physiological condition; G91.9 Hydrocephalus, unspecified; E11.9 Type 2 diabetes mellitus without complications; E53.8 Deficiency of other specified B group vitamins; E78.5 Hyperlipidemia, unspecified; F17.210 Nicotine dependence, cigarettes, uncomplicated; I10 Essential (primary) hypertension; J43.9 Emphysema, unspecified; M06.9 Rheumatoid arthritis, unspecified; Z86.711 Personal history of pulmonary embolism; Z91.81 History of falling; Z91.83 Wandering in diseases classified elsewhere

== ENCOUNTER 2017-11-04 16:34 | Inpatient (IN) | payer MEDICARE ==
[2017-11-04 16:35] VITALS: BMI 27.4
--- NOTE | 2017-11-04 17:02 | C.PDOC ---
History Of Present Illness 77 y/o female, with PMHx of bilateral hip replacement surgery, presents to ED for evaluation of left hip pain s/p mechanical fall this morning. Pt states she hit her head during the fall. Denies LOC, headache, dizziness, visual changes, nausea, vomiting, chest pain, or shortness of breath. Denies taking any pain meds at home. - HPI Time Seen by Provider: 11/04/17 16:39 Chief Complaint (Nursing): Trauma History Per: Patient History/Exam Limitations: no limitations Past Medical History Reviewed: Historical Data, Nursing Documentation, Vital Signs - Medical History PMH: Anemia, Anxiety, COPD, Depression, Emphysema, Fractures, Hiatal Hernia, HTN , Hypercholesterolemia, Pulmonary Embolism, Rheumatoid Arthritis Denies: HIV, Chronic Kidney Disease Surgical History: Cholecystectomy - [facility] CLOSED RED-INT FIX FEMUR (10/15/14) INTRODUCTION OF SERUM/TOX/VACCINE INTO MUSCLE, PERC APPROACH (04/02/16) OTHER LOCAL DESTRUC SKIN (10/18/14) PACKED CELL TRANSFUSION (10/15/14) PHYSICAL THERAPY NEC (10/18/14) RECREATIONAL THERAPY (10/18/14) VACCINATION NEC (10/15/14) Family History: States: Unknown Family Hx - Social History Hx Tobacco Use: Yes Hx Alcohol Use: No Hx Substance Use: No - Immunization History Hx Tetanus Toxoid Vaccination: No Hx Influenza Vaccination: No Hx Pneumococcal Vaccination: Yes (2014) Review Of Systems Except As Marked, All Systems Reviewed And Found Negative. Cardiovascular: Negative for: Chest Pain Respiratory: Negative for: Shortness of Breath Musculoskeletal: Positive for: Other (left hip pain) Neurological: Negative for: Change in Speech, Confusion, Headache, Dizziness Physical Exam - Physical Exam Additional Physical Exam Comments: Constitutional: No acute distress. Head: Normocephalic. Eyes: Left eye cataract. ENT: Moist mucous membranes. Neck: Supple. Cardiovascular: Regular rate. Radial pulse 2+ bilaterally. Chest: No tenderness. Respiratory: Clear to auscultation bilaterally. GI: Soft. Nontender. Nondistended. Back: No CVA tenderness. Musculoskeletal: No tenderness or swelling of extremities. Pelvis stable. Hips non-tender. FROM x 4. Skin: No rash. Neurologic: Alert, no focal deficit. Medical Decision Making Medical Decision Making: CT shows punctate hyperattenuation in temporal lobe, radiologist recommends repeat CT in 6-8 hours. Patient in no distress, has no pain. Dr. 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 Consult placed for Dr. Celestin. Dr. Mustafa accepts to her service. Disposition Discussed With : Rayne Mustafa Doctor Will See Patient In The: Hospital - Disposition Disposition: HOSPITALIZED Disposition Time: 19:02 Condition: STABLE Forms: [facility] (Citizen Of [place]) - Clinical Impression Clinical Impression: Head injury - Scribe Statement The provider has reviewed the documentation as recorded by the Scribe KP All medical record entries made by the Scribe were at my direction and personally dictated by me. I have reviewed the chart and agree that the record accurately reflects my personal performance of the history, physical exam, medical decision making, and the department course for this patient. I have also personally directed, reviewed, and agree with the discharge instructions and disposition.
--- NOTE | 2017-11-04 18:09 | CT ---
Date of service: 11/04/2017 PROCEDURE: CT HEAD WITHOUT CONTRAST. HISTORY: fall, headstrike COMPARISON: Comparison is made with the previous study dated 10/09/2017 1129.53 TECHNIQUE: Axial computed tomography images were obtained through the head/brain without intravenous contrast. Radiation dose: Total exam DLP = 1129.5 mGy-cm. This CT exam was performed using one or more of the following dose reduction techniques: Automated exposure control, adjustment of the mA and/or kV according to patient size, and/or use of iterative reconstruction technique. FINDINGS: HEMORRHAGE: There is interval appearance of 0.5 centimeter focus of high attenuation at the left temporal lobe may represent subdural hematoma versus small hemorrhagic contusion best seen on image 41 series 4. BRAIN: No mass effect or edema. Moderate volume loss is again noted. VENTRICLES: Disproportion ventricular dilatation to the volume loss and mildly dilated ventricle is again noted which may represent hydrocephalus. CALVARIUM: No evidence of acute displaced fracture. PARANASAL SINUSES: Unremarkable as visualized. No significant inflammatory changes. MASTOID AIR CELLS: Unremarkable as visualized. No inflammatory changes. OTHER FINDINGS: None. IMPRESSION: There is a 0.5 centimeter high attenuation focus noted at the peripheral left temporal lobe as described above suspicious for acute hemorrhage. Follow-up study is recommended. Otherwise no significant interval change in the brain noted since the previous exam. The above findings were reported to the emergency room physician Dr. Ludwig at 6:05 p.m. on 11/04/2017.
[2017-11-04 19:25] LABS: BASO # 0.1 K/uL (0.0-0.2); BASO % 0.7 % (0.0-2.0); EOS % 0.1 % (0.0-4.0); HEMOGLOBIN 11.1 g/dL (11.0-16.0); LYMPH # 1.3 K/uL (1.0-4.3); LYMPH % 14.3 % (20.0-40.0); MEAN CELL VOLUME 73.1 fL (81.0-99.0); MEAN CORPUSCULAR HEMOGLOBIN 23.4 pg (27.0-31.0); MONO # 0.6 K/uL (0.0-0.8); MONO % 6.3 % (0.0-10.0); NEUT # 7.4 K/uL (1.8-7.0); NEUT % 78.6 % (50.0-75.0); RBC 4.77 Mil/uL (3.80-5.20); RED CELL DISTRIBUTION WIDTH 16.3 % (11.5-14.5); WHITE BLOOD COUNT 9.4 K/uL (4.8-10.8)
[2017-11-04 19:35] LABS: INR 1.2; PROTHROMBIN TIME 13.3 SECONDS (9.7-12.2)
[2017-11-04 19:44] LABS: ALT/SGPT 26 U/L (9-52); AST/SGOT 24 U/L (14-36); BLOOD UREA NITROGEN 13 mg/dL (7-17); CALCIUM 9.2 mg/dl (8.6-10.4); GFR NON-AFRICAN AMERICAN > 60
[2017-11-05 07:27] LABS: BASO % 0.5 % (0.0-2.0); EOS % 0.8 % (0.0-4.0); HEMOGLOBIN 10.3 g/dL (11.0-16.0); LYMPH # 1.1 K/uL (1.0-4.3); LYMPH % 19.8 % (20.0-40.0); MEAN CELL VOLUME 72.9 fL (81.0-99.0); MEAN CORPUSCULAR HEMOGLOBIN 24.1 pg (27.0-31.0); MEAN PLATELET VOLUME 9.5 fL (7.2-11.7); MONO # 0.5 K/uL (0.0-0.8); MONO % 9.2 % (0.0-10.0); NEUT # 3.9 K/uL (1.8-7.0); NEUT % 69.7 % (50.0-75.0); NRBC % 0.1 % (0.0-2.0); RBC 4.3 Mil/uL (3.80-5.20); RED CELL DISTRIBUTION WIDTH 16.3 % (11.5-14.5); WHITE BLOOD COUNT 5.6 K/uL (4.8-10.8)
[2017-11-05 08:05] LABS: ALB/GLOB RATIO 0.9 (1.0-2.1); ALBUMIN 3.6 g/dL (3.5-5.0); ALT/SGPT 23 U/L (9-52); AST/SGOT 19 U/L (14-36); BLOOD UREA NITROGEN 15 mg/dL (7-17); GFR NON-AFRICAN AMERICAN > 60; HDL CHOLESTEROL 44 mg/dL (30-70)
[2017-11-05 08:13] LABS: LDL CHOLESTEROL 94 mg/dL (0-129)
--- NOTE | 2017-11-05 09:05 | CT ---
Date of service: 11/05/2017 PROCEDURE: CT HEAD WITHOUT CONTRAST. HISTORY: R/O acute hemorrhage COMPARISON: 11/04/2017. TECHNIQUE: Axial computed tomography images were obtained through the head/brain without intravenous contrast. Radiation dose: Total exam DLP = 1031.80 mGy-cm. This CT exam was performed using one or more of the following dose reduction techniques: Automated exposure control, adjustment of the mA and/or kV according to patient size, and/or use of iterative reconstruction technique. FINDINGS: HEMORRHAGE: No intracranial hemorrhage. BRAIN: There are mild chronic microangiopathic changes. There is no mass, mass effect or abnormal extra-axial fluid collection. There is no territorial infarction. The midline sagittal structures are normal. VENTRICLES: There is mild age-related global parenchymal volume loss and proportionate enlargement of the cortical sulci. Ventricular dilatation is out of proportion to the sulcal prominence. CALVARIUM: Unremarkable. PARANASAL SINUSES: Unremarkable as visualized. No significant inflammatory changes. MASTOID AIR CELLS: Unremarkable as visualized. No inflammatory changes. OTHER FINDINGS: None. IMPRESSION: No acute intracranial abnormality. Mild age-related global parenchymal volume loss. Ventricular dilatation is out of proportion to the sulcal prominence and normal pressure hydrocephalus should be considered. Clinical follow-up is advised. A preliminary report was provided by [facility].
--- NOTE | 2017-11-05 09:09 | CP.PCM.PN ---
Subjective - Date & Time of Evaluation Date of Evaluation: 11/05/17 Time of Evaluation: 09:08 - Subjective Subjective: full consult dictated no acute pathology pt has NPH will discuss SET UP AND CHARGER shunt with daughter ;later today if she wants surgery will schedule earliest we can do this would be tue of this week Objective - Vital Signs/Intake and Output Vital Signs (last 24 hours): Temp Pulse Resp BP Pulse Ox 98.5 F 89 18 143/89 94 L 11/05/17 07:29 11/05/17 07:29 11/05/17 07:29 11/05/17 07:29 11/05/17 07:29 - Medications Medications: Current Medications Acetaminophen (Tylenol 325mg Tab) 650 mg PO Q6 PRN PRN Reason: pain/headache Pantoprazole Sodium (Protonix Inj) 40 mg IVP DAILY [facility] - Labs Labs: 11/05/17 07:17 11/05/17 07:17 PT 13.3 SECONDS (9.7-12.2) H 11/04/17 19:19 INR 1.2 11/04/17 19:19 APTT 33 SECONDS (21-34) 11/04/17 19:19
--- NOTE | 2017-11-05 12:41 | RAD ---
PROCEDURE: Left Hip X-ray Radiographs. HISTORY: fall, L hip pain COMPARISON: None. FINDINGS: BONES: The pelvic ring is intact. There is no acute displaced fracture or bone destruction. Bone alignment is normal. Status post open reduction and internal fixation of left intertrochanteric fracture. No hardware complications. JOINTS: Status post right hip arthroplasty. No dislocation. The left hip joint space is preserved. SOFT TISSUES: Normal. OTHER FINDINGS: None. IMPRESSION: No acute displaced fracture or dislocation. Please note occult fractures cannot be excluded on plain radiographs. If there is a persistent clinical concern, an MRI of the hip may be performed for further evaluation.
--- NOTE | 2017-11-05 17:08 | CP.PCM.CON ---
History of Present Illness - History of Present Illness History of Present Illness: Neurology Consultation Note: Mrs. Rendon is a 77-year-old woman, who I know from previous admissions, with previous evidence of NPH. She presented again for frequent falls. She was already evaluated by neurosurgery and they agree that a WARP DRAWER shunt is needed. Neurology was consulted to assist with the management and care. Review of Systems - Review of Systems All systems: reviewed and no additional remarkable complaints except Past Patient History - Past Medical History & Family History Past Medical History?: Yes - Past Social History Smoking Status: Current Some Days Smoker - CARDIAC Hx Hypercholesterolemia: Yes Hx Hypertension: Yes - PULMONARY Hx Chronic Obstructive Pulmonary Disease (COPD): Yes Hx Emphysema: Yes Hx Pulmonary Embolism: Yes - NEUROLOGICAL Hx Neurological Disorder: No - HEENT Hx HEENT Problems: No - RENAL Hx Chronic Kidney Disease: No - ENDOCRINE/METABOLIC Hx Diabetes Mellitus Type 2: Yes - HEMATOLOGICAL/ONCOLOGICAL Hx Anemia: Yes Hx Human Immunodeficiency Virus (HIV): No - INTEGUMENTARY Hx Dermatological Problems: No - MUSCULOSKELETAL/RHEUMATOLOGICAL Hx Fractures: Yes Hx Rheumatoid Arthritis: Yes - GASTROINTESTINAL Hx Gastrointestinal Disorders: Yes - GENITOURINARY/GYNECOLOGICAL Hx Genitourinary Disorders: No - PSYCHIATRIC Hx Anxiety: Yes Hx Depression: Yes Hx Substance Use: No - SURGICAL HISTORY Hx Cholecystectomy: Yes - ANESTHESIA Hx Anesthesia: Yes Hx Anesthesia Reactions: No Hx Malignant Hyperthermia: No Meds Allergies/Adverse Reactions: Allergies Allergy/AdvReac Type Severity Reaction Status Date / Time No Known Allergies Allergy Verified 10/09/17 03:11 - Medications Medications: Current Medications Acetaminophen (Tylenol 325mg Tab) 650 mg PO Q6 PRN PRN Reason: pain/headache Last Admin: 11/05/17 09:15 Dose: 650 mg Pantoprazole Sodium (Protonix Inj) 40 mg IVP DAILY [facility] Last Admin: 11/05/17 09:15 Dose: 40 mg Physical Exam - Neurological Exam Neurological exam: Abnormal Gait, Alert, CN II-XII Intact, Oriented x3, Reflexes Normal Results - Vital Signs Recent Vital Signs: Last Vital Signs Temp 98.3 F 11/05/17 16:10 Pulse 77 11/05/17 16:10 Resp 20 11/05/17 16:10 BP 123/79 11/05/17 16:10 Pulse Ox 97 11/05/17 16:10 - Labs Result Diagrams: 11/05/17 07:17 11/05/17 07:17 Labs: Laboratory Results - last 24 hr 11/04/17 11/04/17 11/04/17 19:19 19:19 19:19 WBC 9.4 D RBC 4.77 Hgb 11.1 Hct 34.8 MCV 73.1 L MCH 23.4 L MCHC 32.0 L RDW 16.3 H Plt Count 191 MPV 9.0 Neut % (Auto) 78.6 H Lymph % (Auto) 14.3 L Garfield % (Auto) 6.3 Eos % (Auto) 0.1 Baso % (Auto) 0.7 Neut # (Auto) 7.4 H Lymph # (Auto) 1.3 Garfield # (Auto) 0.6 Eos # (Auto) 0.0 Baso # (Auto) 0.1 PT 13.3 H INR 1.2 APTT 33 Sodium Potassium Chloride Carbon Dioxide Anion Gap BUN Creatinine Est GFR ( Amer) Est GFR (Non-Af Amer) POC Glucose (mg/dL) Random Glucose Calcium Total Bilirubin AST ALT Alkaline Phosphatase Total Protein Albumin Globulin Albumin/Globulin Ratio Triglycerides Cholesterol LDL Cholesterol Direct HDL Cholesterol Blood Type A POSITIVE Antibody Screen Negative 11/04/17 11/05/17 11/05/17 19:20 06:02 07:17 WBC 5.6 RBC 4.30 Hgb 10.3 L Hct 31.3 L MCV 72.9 L MCH 24.1 L MCHC 33.0 RDW 16.3 H Plt Count 171 MPV 9.5 Neut % (Auto) 69.7 Lymph % (Auto) 19.8 L Garfield % (Auto) 9.2 Eos % (Auto) 0.8 Baso % (Auto) 0.5 Neut # (Auto) 3.9 Lymph # (Auto) 1.1 Garfield # (Auto) 0.5 Eos # (Auto) 0.0 Baso # (Auto) 0.0 PT INR APTT Sodium 138 Potassium 3.9 Chloride 100 Carbon Dioxide 29 Anion Gap 13 BUN 13 Creatinine 0.4 L Est GFR ( Amer) > 60 Est GFR (Non-Af Amer) > 60 POC Glucose (mg/dL) 96 Random Glucose 107 H Calcium 9.2 Total Bilirubin 0.6 AST 24 ALT 26 Alkaline Phosphatase 90 Total Protein 7.9 Albumin 4.0 Globulin 3.9 Albumin/Globulin Ratio 1.0 Triglycerides Cholesterol LDL Cholesterol Direct HDL Cholesterol Blood Type Antibody Screen 11/05/17 07:17 WBC RBC Hgb Hct MCV MCH MCHC RDW Plt Count MPV Neut % (Auto) Lymph % (Auto) Garfield % (Auto) Eos % (Auto) Baso % (Auto) Neut # (Auto) Lymph # (Auto) Garfield # (Auto) Eos # (Auto) Baso # (Auto) PT INR APTT Sodium 138 Potassium 3.6 Chloride 100 Carbon Dioxide 31 H Anion Gap 11 BUN 15 Creatinine 0.4 L Est GFR ( Amer) > 60 Est GFR (Non-Af Amer) > 60 POC Glucose (mg/dL) Random Glucose 96 Calcium 9.0 Total Bilirubin 0.8 AST 19 ALT 23 Alkaline Phosphatase 87 Total Protein 7.5 Albumin 3.6 Globulin 3.9 Albumin/Globulin Ratio 0.9 L Triglycerides 68 Cholesterol 162 LDL Cholesterol Direct 94 HDL Cholesterol 44 Blood Type Antibody Screen Assessment & Plan (1) Normal pressure hydrocephalus Assessment and Plan: I agree that the patient should be managed neurosurgically. No further recommendations from a neurological perspective. Please re-consult if there are any other concerns. Thank you. Status: Acute Priority: High
--- NOTE | 2017-11-05 19:45 | CON ---
DATE: 11/05/2017 HISTORY OF PRESENT ILLNESS: This is a 77-year-old white female, admitted to the hospital last night from the emergency room. She sustained a fall. The original CT shows a very small right temporal hyperdensity, which they were concerned being a hemorrhage. A repeat CAT scan is not officially read, though I could not identify any hemorrhage of any significance on either study. The woman was previously admitted to [facility] for falling. She had a workup at that time. An MRI and CT demonstrated that she has normal pressure hydrocephalus. She was scheduled to come to my office this week, coming for evaluation. PHYSICAL EXAMINATION: GENERAL: Currently, she is fully awake, alert, and oriented x3. HEENT: Her pupils are equal. Her EOMs are full. Face is symmetric. She has good strength in all limbs. Reflexes are all 1/4 and I could not elicit any sensory deficits. PAST MEDICAL HISTORY: She has really no significant past medical history. MEDICATIONS: No significant medication. ALLERGIES: LISTED ON THE CHART. REVIEW OF SYSTEMS: As listed on the chart. PAST SURGICAL HISTORY: As listed on the chart. She lives in an adult community. Denies smoking or drinking today. FAMILY HISTORY: Noncontributory. She does have a CT and MRI as previously noted, demonstrating normal pressure hydrocephalus. I have an appointment to speak to her daughter today about the possibility of doing a MANAGER LAW shunt. If the daughter wishes, we will get this scheduled for later this week. If you have any questions, do not hesitate to contact me. There is no reason why she needs to be in. the hospital awaiting surgery. If she goes home, we will have little more leeway in scheduling this as this is purely elective. If she stays here, we will try our best to get it on as early in the week as possible. Frederick Vuong MD
--- NOTE | 2017-11-06 06:10 | HP ---
The patient was seen and examined at the bedside on 11/05/2017. CHIEF COMPLAINT: Fall and fatigue. HISTORY OF PRESENT ILLNESS: The patient is a 77-year-old lady living alone by herself. PAST MEDICAL HISTORY: Bilateral hip replacement surgery, came to the [facility] emergency room for evaluation of left hip pain after mechanical fall this morning. The patient states that she hit her head during the fall. Denies loss of consciousness. Complaining about headache. No visual changes. No nausea, vomiting. No dizziness. No chest pain or shortness of breath. Denies any fever, chills. No hematuria, hematochezia. Anemia, anxiety, COPD, depression, emphysema, fractures, hiatal hernia, hypertension, hypercholesterolemia, pulmonary embolism, rheumatoid arthritis, history of cholecystectomy. FAMILY HISTORY: Father and mother noncontributory. HABITS: Tobacco, yes. Alcohol, no. Substance abuse, no. REVIEW OF SYSTEM: The patient was seen and examined at the bedside in her room complaining about headache that moment. No fever, no chills. No hematuria. No hematochezia. No dysuria. Complaining about headache, but no dizziness. No blurring of vision. No nausea, vomiting, or diarrhea. PHYSICAL EXAMINATION: VITAL SIGNS: Temperature 98.2, pulse 89, respiratory rate 16, blood pressure 142/89, pulse oximetry 97 on room air. HEENT: Head normocephalic, history of fall. Eyes, PERRLA. Extraocular muscles are intact. Conjunctivae clear. Nose is patent. NECK: Supple. No carotid bruit, JVD, or thyromegaly. CHEST: Bilaterally symmetrical. HEART: S1 and S2 positive. LUNGS: Clear to auscultation. ABDOMEN: Soft. Bowel sound present. No organomegaly. EXTREMITIES: No edema. No cyanosis. NEUROLOGICAL: The patient is awake and alert. Moving all four extremities. No focal deficits. MEDICATIONS: Protonix, Tylenol. LABORATORY DATA: White blood cell is 5.6, hemoglobin 10.3. On admission, hemoglobin 11.1, hematocrit 31.3, platelets 171. Sodium 138, potassium 3.6, BUN 15, creatinine 0.4, glucose 136, random glucose 107. ASSESSMENT AND PLAN: Ms. Genet Rendon is a 77-year-old lady with anemia, hyperglycemia, history of fall, not complaining about headache, history of anxiety, anemia, chronic obstructive pulmonary disease, depression, emphysema, fracture, hiatal hernia, hypercholesterolemia, hypertension, pulmonary embolism, rheumatoid arthritis, history of cholecystectomy. CAT scan of the head done and reviewed by me. Neurosurgery consult called from Dr. Frederick Vuong. No acute pathology. The patient has NPH. We will discuss TELEVISION PROGRAM DIRECTOR shunt with daughter. If she wants, surgery can be scheduled, seen by Dr. Manfred Celestin, neurologist. Dr. Manfred Celestin knows this patient from previous admission with previous evidence of normal pressure hydrocephalus. The patient presents again for frequent falls. They agree with the TELEVISION PROGRAM DIRECTOR shunt is needed. as per neurologist, patient should be managed neurosurgically. No further recommendation from neurologic perspective as per Dr. Manfred Celestin. Tylenol given for headache. Protonix given for gastrointestinal prophylaxis. We will do ALBERT stocking. Repeat labs. Repeat CAT scan done. We will follow up. Rayne Mustafa MD [email or web address]
[2017-11-06 08:07] LABS: IRON 28 ug/dL (37-170)
[2017-11-06 08:16] LABS: % IRON SATURATION 7 (20-55); TOTAL IRON BINDING CAPACITY 425 ug/dL (250-450)
[2017-11-06] MEDS: Multiple Vitamins Tab PO SCH (09:02)
[2017-11-06 09:13] LABS: FOLATE 10.3 ng/mL
--- NOTE | 2017-11-06 12:22 | CP.PCM.PN ---
Subjective - Date & Time of Evaluation Date of Evaluation: 11/06/17 Time of Evaluation: 12:21 - Subjective Subjective: discussed in detail DIRECTOR OF CAMPUS RECREATION Shunt with Daughter She understands risks benefits and alternatives wishes to proceed will try to find some OR time [place] Objective - Vital Signs/Intake and Output Vital Signs (last 24 hours): Temp Pulse Resp BP Pulse Ox 97.9 F 82 20 130/83 96 11/06/17 08:00 11/06/17 08:00 11/06/17 08:00 11/06/17 08:00 11/06/17 08:00 Intake and Output: 11/06/17 11/06/17 06:59 18:59 Output Total 400 Balance -400 - Medications Medications: Current Medications Acetaminophen (Tylenol 325mg Tab) 650 mg PO Q6 PRN PRN Reason: pain/headache Last Admin: 11/06/17 03:30 Dose: 650 mg Multivitamins (Hexavitamin) 1 tab PO DAILY [facility] Last Admin: 11/06/17 09:02 Dose: 1 tab Pantoprazole Sodium (Protonix Inj) 40 mg IVP DAILY [facility] Last Admin: 11/06/17 09:02 Dose: 40 mg - Labs Labs: 11/05/17 07:17 11/05/17 07:17 PT 13.3 SECONDS (9.7-12.2) H 11/04/17 19:19 INR 1.2 11/04/17 19:19 APTT 33 SECONDS (21-34) 11/04/17 19:19
--- NOTE | 2017-11-07 03:13 | PN ---
DATE: 11/06/2017 SUBJECTIVE: The patient was seen and examined on the bedside on 11/06/2017, notes are for 11/06/2017. The patient looks comfortable and was asking multiple questions about her head surgery done, I explained to her that neurosurgeon is talking to her daughter, but the patient want herself to know about that. I tried my best to explain her, but neuro surgeon spoke to the patient's daughter about GEOTECHNICAL FIELD TECHNICIAN shunt in details. Daughter understand risk, benefits and alternatives. Now, we will talk to neuro surgeon to talk to the patient herself. No fever. No chills. No nausea, vomiting or diarrhea. No hematuria, no hematochezia. No swelling of the leg. PHYSICAL EXAMINATION: VITAL SIGNS: Temperature 97.9, pulse 82, respiratory rate 20, blood pressure 130/83, and pulse oximetry 96. HEENT: Head is normocephalic atraumatic. Eyes PERRLA. Extraocular muscles intact. Conjunctivae clear. Nose patent. NECK: Supple. No carotid bruits. No JVD or thyromegaly. CHEST: Bilaterally symmetrical. HEART: S1 and S2 positive. LUNGS: Clear to auscultation. ABDOMEN: Soft. Bowel sounds present. No organomegaly. EXTREMITIES: No edema. No cyanosis. NEUROLOGIC: The patient is awake and alert. Moving all 4 extremities. No focal deficits. MEDICATIONS: Tylenol, multivitamin and Protonix. LABORATORY DATA: White blood cell 5.6, hemoglobin 10.3, hematocrit 31.3 and platelets 171. Sodium 138, potassium 3.6, BUN 15, creatinine 0.4 and glucose 96. ASSESSMENT AND PLAN: Mrs. Genet Rendon is 77 years old lady with anemia, has history of fall, has normal pressure hydrocephalus. According to neurologist, the patient need GEOTECHNICAL FIELD TECHNICIAN shunt by talking to the daughter, appreciating Dr. Frederick Vuong input and Dr. Manfred Celestin's input. CAT scan of the head is done. Hip and pelvis x-ray done. The patient has history of fall, chronic obstructive pulmonary disease, emphysema, history of pulmonary embolism, history of rheumatoid arthritis, anxiety, depression, history of cholecystectomy. Continue present treatment. Fall precautions. GI and DVT prophylaxis. Will follow up. Rayne Mustafa MD [facility] # [phone] [place]
[2017-11-07 08:07] LABS: MEAN CELL VOLUME 72.9 fL (81.0-99.0); MEAN CORPUSCULAR HEMOGLOBIN 23.9 pg (27.0-31.0); MEAN CORPUSCULAR HGB CONC 32.7 g/dL (33.0-37.0); MEAN PLATELET VOLUME 9.6 fL (7.2-11.7); RBC 4.61 Mil/uL (3.80-5.20); RED CELL DISTRIBUTION WIDTH 16.6 % (11.5-14.5); WHITE BLOOD COUNT 6.4 K/uL (4.8-10.8)
[2017-11-07 08:40] LABS: BLOOD UREA NITROGEN 12 mg/dL (7-17); GFR NON-AFRICAN AMERICAN > 60
[2017-11-07] MEDS: Multiple Vitamins Tab PO SCH (09:24)
[2017-11-07] MEDS ORDERED: Oxycodone/Acetaminophen 5/325 mg Tab PO ONE (14:00)
--- NOTE | 2017-11-07 15:06 | CP.PCM.CON ---
<Isis Hendricks - Last Filed: 11/07/17 15:06> History of Present Illness - History of Present Illness History of Present Illness: Cardiology consult for cardiac clearance Isis Hendricks, PGY1 note for Dr. Garcia This is a 77 year old female with PMH of COPD, depression, anxiety, anemia, pulmonary embolism, rheumatoid arthritis, HLD, HTN and history of falls presenting to the hospital s/p mechanical fall on 11/04/17. She admitted to hitting her head but denies LOC. CT head showed ventricular dilation out of proportion to the sulcus prominence and normal pressure hydrocephalus. Per neurosurgery, will proceed with FAMILY AND CONSUMER SCIENCE PROFESSOR shunt. Patient states she is able to walk comfortably without getting short of breath but admits to hip pain beyond 20 steps. At this time, she denies CP, SOB, fevers, nausea, vomiting, headaches, back pain, abdominal pain, urinary complaints, numbness, tingling, recent sickness and recent travel. 12 point ROS noted here, otherwise unremarkable. PMH: as above PMD: denies SH: 3-4 ciggs/day for the last 50 years, denies alcohol and drugs Sx: B/L hip replacement, cholecystectomy FH: denies All: NKDA Meds: denies home meds Past Patient History - Past Medical History & Family History Past Medical History?: Yes - Past Social History Smoking Status: Current Some Days Smoker - CARDIAC Hx Hypercholesterolemia: Yes Hx Hypertension: Yes - PULMONARY Hx Chronic Obstructive Pulmonary Disease (COPD): Yes - NEUROLOGICAL Hx Neurological Disorder: No - HEENT Hx HEENT Problems: No - RENAL Hx Chronic Kidney Disease: No - ENDOCRINE/METABOLIC Hx Diabetes Mellitus Type 2: Yes - HEMATOLOGICAL/ONCOLOGICAL Hx Anemia: Yes Hx Human Immunodeficiency Virus (HIV): No - INTEGUMENTARY Hx Dermatological Problems: No - MUSCULOSKELETAL/RHEUMATOLOGICAL Hx Rheumatoid Arthritis: Yes - GASTROINTESTINAL Hx Gastrointestinal Disorders: Yes - GENITOURINARY/GYNECOLOGICAL Hx Genitourinary Disorders: No - PSYCHIATRIC Hx Substance Use: No - SURGICAL HISTORY Hx Cholecystectomy: Yes - ANESTHESIA Hx Anesthesia: Yes Hx Anesthesia Reactions: No Hx Malignant Hyperthermia: No Meds Allergies/Adverse Reactions: Allergies Allergy/AdvReac Type Severity Reaction Status Date / Time No Known Allergies Allergy Verified 10/09/17 03:11 - Medications Medications: Current Medications Acetaminophen (Tylenol 325mg Tab) 650 mg PO Q6 PRN PRN Reason: pain/headache Last Admin: 11/06/17 03:30 Dose: 650 mg Multivitamins (Hexavitamin) 1 tab PO DAILY [facility] Last Admin: 11/07/17 09:24 Dose: 1 tab Pantoprazole Sodium (Protonix Inj) 40 mg IVP DAILY [facility] Last Admin: 11/07/17 09:24 Dose: 40 mg Physical Exam - Constitutional Appears: No Acute Distress - Head Exam Head Exam: ATRAUMATIC, NORMAL INSPECTION - Eye Exam Eye Exam: EOMI Pupil Exam: PERRL - ENT Exam ENT Exam: Mucous Membranes Moist - Respiratory Exam Respiratory Exam: Clear to Auscultation Bilateral. absent: Wheezes, Respiratory Distress - Cardiovascular Exam Cardiovascular Exam: REGULAR RHYTHM, +S1, +S2 - GI/Abdominal Exam GI & Abdominal Exam: Normal Bowel Sounds. absent: Firm, Guarding - Extremities Exam Extremities exam: Positive for: normal inspection, pedal pulses present. Negative for: calf tenderness - Neurological Exam Neurological exam: Alert, Oriented x3 - Skin Skin Exam: Normal Color, Warm Results - Vital Signs Recent Vital Signs: Last Vital Signs Temp 98.0 F 11/07/17 07:30 Pulse 78 11/07/17 07:30 Resp 18 11/07/17 14:25 BP 132/85 11/07/17 07:30 Pulse Ox 96 11/07/17 07:30 - Labs Result Diagrams: 11/07/17 07:59 11/07/17 07:59 Labs: Laboratory Results - last 24 hr 11/07/17 11/07/17 07:59 07:59 WBC 6.4 RBC 4.61 Hgb 11.0 Hct 33.6 L MCV 72.9 L MCH 23.9 L MCHC 32.7 L RDW 16.6 H Plt Count 156 MPV 9.6 Sodium 138 Potassium 4.0 Chloride 99 Carbon Dioxide 31 H Anion Gap 12 BUN 12 Creatinine 0.4 L Est GFR ( Amer) > 60 Est GFR (Non-Af Amer) > 60 Random Glucose 100 Calcium 9.0 TSH 3rd Generation 0.70 Assessment & Plan - Assessment and Plan (Free Text) Assessment: This is a 77 year old female with PMH of COPD, depression, anxiety, anemia, pulmonary embolism, rheumatoid arthritis, HLD, HTN and history of falls presenting to the hospital s/p mechanical fall on 9/21/18. She is being evaluated for cardiac clearance for FAMILY AND CONSUMER SCIENCE PROFESSOR shunt placement. Plan: NPH -CT head showed ventricular dilation out of proportion to the sulcus prominence and normal pressure hydrocephalus. -will need FAMILY AND CONSUMER SCIENCE PROFESSOR shunt per neurosurgery -Sherri renner Further recommendations per Dr. Garcia <Elfego Garcia - Last Filed: 11/07/17 17:04> Meds - Medications Medications: Current Medications Acetaminophen (Tylenol 325mg Tab) 650 mg PO Q6 PRN PRN Reason: pain/headache Last Admin: 11/06/17 03:30 Dose: 650 mg Multivitamins (Hexavitamin) 1 tab PO DAILY [facility] Last Admin: 11/07/17 09:24 Dose: 1 tab Pantoprazole Sodium (Protonix Inj) 40 mg IVP DAILY [facility] Last Admin: 11/07/17 09:24 Dose: 40 mg Results - Vital Signs Recent Vital Signs: Last Vital Signs Temp 98.2 F 11/07/17 15:56 Pulse 90 11/07/17 15:56 Resp 20 11/07/17 15:56 BP 134/82 11/07/17 15:56 Pulse Ox 96 11/07/17 15:56 - Labs Result Diagrams: 11/07/17 07:59 11/07/17 07:59 Labs: Laboratory Results - last 24 hr 11/07/17 11/07/17 07:59 07:59 WBC 6.4 RBC 4.61 Hgb 11.0 Hct 33.6 L MCV 72.9 L MCH 23.9 L MCHC 32.7 L RDW 16.6 H Plt Count 156 MPV 9.6 Sodium 138 Potassium 4.0 Chloride 99 Carbon Dioxide 31 H Anion Gap 12 BUN 12 Creatinine 0.4 L Est GFR ( Amer) > 60 Est GFR (Non-Af Amer) > 60 Random Glucose 100 Calcium 9.0 TSH 3rd Generation 0.70 Assessment & Plan (1) Preop cardiovascular exam Status: Acute (2) Frequent falls Assessment and Plan: etiology ? unclear will need ischemic evaluation echo Status: Acute
--- NOTE | 2017-11-07 18:16 | CARD ---
APPROVED REPORT Date of service: 11/04/2017 EKG Measurement Heart [id number] <Conclusion> Sinus tachycardia Otherwise normal ECG
--- NOTE | 2017-11-08 07:26 | PN ---
DATE: 11/07/2017 SUBJECTIVE: The patient was seen and examined at the bedside on 11/07/2017. Looking comfortable, sometime is having headache. No nausea, vomiting, diarrhea. No hematuria or hematochezia. No swelling of the legs. No fever, no chills. PHYSICAL EXAMINATION: VITAL SIGNS: Temperature 98, pulse 78, respiratory rate 18, blood pressure 113/85, pulse oximetry 96. HEENT: Head normocephalic, atraumatic. Eyes PERRLA. Extraocular muscles intact. Conjunctivae clear. Nose patent. NECK: Supple. No carotid bruits, JVD, or thyromegaly. CHEST: Bilaterally symmetrical. HEART: S1, S2 positive. LUNGS: Clear to auscultation. ABDOMEN: Soft. Bowel sounds present. No organomegaly. EXTREMITIES: No edema. No cyanosis. NEUROLOGIC: The patient is awake, alert. Moving all four extremities. No focal deficits. LABORATORY DATA: White blood cell 6.4, hemoglobin 11, hematocrit 33.6, platelets 156. Sodium 130, potassium 4, BUN 12, creatinine 0.4, glucose noted ASSESSMENT AND PLAN: Ms. Genet Rendon is a 77-year-old female with history of anemia, need surgery of normal pressure hydrocephalus. We called Cardiology consult for preoperative cardiac clearance. Etiology of fall is unclear. The patient was seen by Dr. Frederick Vuong. The patient needs DATABASE ADMINISTRATION MANAGER shunt. neurosurgion spoke to the patient's daughter, the daughter understands the risk and benefits of surgery . Gastrointestinal and deep vein thrombosis prophylaxis given. Appreciated neurologist and Dr. Vuong's input. Repeat labs. We will follow up. Rayne Mustafa MD [facility]
[2017-11-08] MEDS: Multiple Vitamins Tab PO SCH (09:58)
[2017-11-08] MEDS: Pantoprazole 40 mg EC Tab PO SCH (09:59)
[2017-11-08] MEDS ORDERED: Caffeine Citrated **INJ** 20 MG/ML IV ONE (11:31)
--- NOTE | 2017-11-08 16:46 | CP.PCM.PN ---
<Isis Hendricks - Last Filed: 11/08/17 16:46> Subjective - Date & Time of Evaluation Date of Evaluation: 11/08/17 Time of Evaluation: 16:44 - Subjective Subjective: Cardiology Progress Note for Dr. Jose Hendricks, PGY1 Patient seen and examined at bedside today. No acute events reported overnight. Patient offers no complaints at this time. Will receive stress test today. Objective - Vital Signs/Intake and Output Vital Signs (last 24 hours): Temp Pulse Resp BP Pulse Ox 98.5 F 93 H 20 137/89 96 11/08/17 07:00 11/08/17 07:19 11/08/17 07:00 11/08/17 07:00 11/08/17 07:00 Intake and Output: 11/08/17 11/08/17 06:59 18:59 Intake Total 300 Balance 300 - Medications Medications: Current Medications Acetaminophen (Tylenol 325mg Tab) 650 mg PO Q6 PRN PRN Reason: pain/headache Last Admin: 11/06/17 03:30 Dose: 650 mg Multivitamins (Hexavitamin) 1 tab PO DAILY [facility] Last Admin: 11/08/17 09:58 Dose: Not Given Pantoprazole Sodium (Protonix Ec Tab) 40 mg PO DAILY [facility] Last Admin: 11/08/17 09:59 Dose: Not Given - Labs Labs: 11/07/17 07:59 11/07/17 07:59 PT 13.3 SECONDS (9.7-12.2) H 11/04/17 19:19 INR 1.2 11/04/17 19:19 APTT 33 SECONDS (21-34) 11/04/17 19:19 - Constitutional Appears: No Acute Distress - Head Exam Head Exam: ATRAUMATIC, NORMAL INSPECTION - Eye Exam Eye Exam: EOMI Pupil Exam: PERRL - ENT Exam ENT Exam: Mucous Membranes Moist - Respiratory Exam Respiratory Exam: Clear to Ausculation Bilateral. absent: Respiratory Distress - Cardiovascular Exam Cardiovascular Exam: REGULAR RHYTHM, +S1, +S2 - GI/Abdominal Exam GI & Abdominal Exam: Normal Bowel Sounds. absent: Guarding, Rigid - Extremities Exam Extremities Exam: Normal Inspection. absent: Calf Tenderness - Neurological Exam Neurological Exam: Alert, Awake, Oriented x3 - Skin Skin Exam: Normal Color, Warm Assessment and Plan - Assessment and Plan (Free Text) Assessment: This is a 77 year old female with PMH of COPD, depression, anxiety, anemia, pulmonary embolism, rheumatoid arthritis, HLD, HTN and history of falls presenting to the hospital s/p mechanical fall on 11/04/17. She is being evaluated for cardiac clearance for FORMING DEPARTMENT END FINDER shunt placement. Plan: Pre op clearance -received stress test today -will need ischemic workup including echo Further recommendations per Dr. Garcia <Elfego Garcia - Last Filed: 11/09/17 11:27> Objective - Vital Signs/Intake and Output Vital Signs (last 24 hours): Temp Pulse Resp BP Pulse Ox 98.5 F 94 H 20 133/80 97 11/09/17 08:04 11/09/17 08:04 11/09/17 08:04 11/09/17 08:04 11/09/17 08:04 Intake and Output: 11/09/17 11/09/17 06:59 18:59 Intake Total 400 Balance 400 - Medications Medications: Current Medications Acetaminophen (Tylenol 325mg Tab) 650 mg PO Q6 PRN PRN Reason: pain/headache Last Admin: 11/06/17 03:30 Dose: 650 mg Multivitamins (Hexavitamin) 1 tab PO DAILY [facility] Last Admin: 11/09/17 10:26 Dose: 1 tab Pantoprazole Sodium (Protonix Ec Tab) 40 mg PO DAILY [facility] Last Admin: 11/09/17 10:26 Dose: 40 mg - Labs Labs: 11/09/17 06:29 11/09/17 06:29 PT 13.3 SECONDS (9.7-12.2) H 11/04/17 19:19 INR 1.2 11/04/17 19:19 APTT 33 SECONDS (21-34) 11/04/17 19:19 Assessment and Plan (1) Preop cardiovascular exam Status: Acute (2) Frequent falls Status: Acute Attending/Attestation - Attestation I have personally seen and examined this patient.: Yes I have fully participated in the care of the patient.: Yes I have reviewed all pertinent clinical information, including history, physical exam and plan: Yes Notes (Text): 11/09/17 11:27 s/p stress testing today further rx based on results of stress test
[2017-11-09 07:13] LABS: BASO % 0.5 % (0.0-2.0); EOS # 0.1 K/uL (0.0-0.7); EOS % 1.2 % (0.0-4.0); HEMOGLOBIN 10.6 g/dL (11.0-16.0); LYMPH # 1.1 K/uL (1.0-4.3); LYMPH % 17.2 % (20.0-40.0); MEAN CELL VOLUME 73.6 fL (81.0-99.0); MEAN CORPUSCULAR HEMOGLOBIN 24.1 pg (27.0-31.0); MEAN CORPUSCULAR HGB CONC 32.7 g/dL (33.0-37.0); MEAN PLATELET VOLUME 10.3 fL (7.2-11.7); MONO # 0.6 K/uL (0.0-0.8); MONO % 9.8 % (0.0-10.0); NEUT # 4.7 K/uL (1.8-7.0); NEUT % 71.3 % (50.0-75.0); NRBC % 0.1 % (0.0-2.0); RBC 4.41 Mil/uL (3.80-5.20); RED CELL DISTRIBUTION WIDTH 16.5 % (11.5-14.5); WHITE BLOOD COUNT 6.6 K/uL (4.8-10.8)
[2017-11-09 07:43] LABS: ALB/GLOB RATIO 0.9 (1.0-2.1); ALBUMIN 3.5 g/dL (3.5-5.0); ALT/SGPT 19 U/L (9-52); AST/SGOT 19 U/L (14-36); BLOOD UREA NITROGEN 22 mg/dL (7-17); GFR NON-AFRICAN AMERICAN > 60
[2017-11-09] MEDS: Pantoprazole 40 mg EC Tab PO SCH (10:26)
[2017-11-09] MEDS: Multiple Vitamins Tab PO SCH (10:26)
--- NOTE | 2017-11-09 11:19 | CARD ---
APPROVED REPORT Date of service: 11/08/2017 Protocol: LEXISCAN Test Type: LEXISCAN STRESS Test Indications: PRE OP Target HR: 141 bpm Resting Heart Rate: 109 bpm Resting Blood Pressure: 128/80mmHg submaximum (85%): 120 bpm TEST SUMMARY PREINFSNHYPERV.36:[id number]/80.0. INFUSIONDOSE 100:300.00.01.0104/.0. [id number]/80.1. PROCEDURE Pharmacologic stress testing was performed using 0.4mg per 5ml of regadenoson given intravenously over 7-10 seconds. POST EXERCISE Target HR: No Max HR: 104 bpm 87% of Maximum Predicted HR: 141 bpm Exercise duration: 00:30 min:sec, 0 Stage Exercise capacity: 1.0METs Max Blood Pressure: 130/80mmHg Chest Pain: Yes, Angina index: 0 Arrhythmia: Yes, ST Change: Yes, Deviation: 0 mm EXAM: Myocardial Perfusion REST/STRESS Imaging Protocol The imaging protocol used to acquire images was Rest Tc-99m/stress Tc-99m 1 day Rest Spect myocardial perfusion imaging was performed in supine position 41 minutes following the injection of 13.1 mCi of Tc-99 Myoview. Gated Stress Spect was performed 41 minutes after intravenous 32.1 mCi Tc-99 Myoview injection. The images were gated to evaluate regional wall motion and calculate ventricular ejection fraction.Images were reconstructed using backfilter projection method in short horizontal and verticle long axis. Spect slices were generated. RESTING DATA EDV41.25xcKC1.10L/min ESV9.00mlMyocardial Mass87.00g Av. Heart Rate97.00bpm EF78.00% STRESS DATA EDV49.09upWI9.10L/min ESV12.00mlMyocardial Qotl852.00g EF76.00% Regional WT score at stress:3.00 Regional WM score at stress:0.00 Summed WT score at stress:15.00 Av. Heart Vjap832.00bpmSummed WM score at stress:3.00 Study quality was fair. Left Ventricular size was Normal at Rest and Stress. The rest and stress images show normal perfusion, normal contraction and thickening. LV Perfusion 1 TCD/TID: Yes LV Perf. Quant 17 Seg. SSS0.00 17 Seg. SRS0.00 17 Seg. SDS0.00 Stress Defect Extent (% LAD)0.00Rest Defect Extent (% LAD)0.00Rev. Defect Extent (% LAD)0.00 Stress Defect Extent (% LCX)0.00Rest Defect Extent (% LCX)0.00Rev. Defect Extent (% LCX)0.00 Stress Defect Extent (% RCA)0.00Rest Defect Extent (% RCA)0.00Rev. Defect Extent (% RCA)0.00 Stress Defect Extent (% CLARE)0.00Rest Defect Extent (% CLARE)0.00Rev. Defect Extent (% CLARE)0.00 Other Information Quality:Average Overall Exercise Capacity: n/a IMPRESSION Normal Myocardial Perfusion exercise stress study Global LV Function: Normal Conclusion 1. - No evidence of reversible ischemia on myocardial perfusion study 2. - TID of 1.33 raises concern for balanced ischemia 3. - Further evaluation with cardiac catheterization
[2017-11-09] MEDS ORDERED: Verapamil 2 ML ONE (12:29)
[2017-11-09] MEDS ORDERED: Midazolam 2 MG/2 ML VIAL ONE (12:30)
[2017-11-09] MEDS ORDERED: Lidocaine PF 2% (5 ml) Inj (For Cardiac Arrhy) ONE (12:31)
--- NOTE | 2017-11-09 17:37 | CP.PCM.PN ---
Subjective - Date & Time of Evaluation Date of Evaluation: 11/09/17 Time of Evaluation: 17:35 - Subjective Subjective: Cardiology Progress Note Isis Hendricks, PGY1 note for Dr. Garcia Patient seen and examined today. No acute events reported overnight. Offers no complaints today. Received cardiac cath today. Objective - Vital Signs/Intake and Output Vital Signs (last 24 hours): Temp Pulse Resp BP Pulse Ox 97.9 F 92 H 20 124/84 98 11/09/17 15:00 11/09/17 15:00 11/09/17 15:00 11/09/17 15:00 11/09/17 15:00 Intake and Output: 11/09/17 11/09/17 06:59 18:59 Intake Total 400 400 Output Total 0 Balance 400 400 - Medications Medications: Current Medications Acetaminophen (Tylenol 325mg Tab) 650 mg PO Q6 PRN PRN Reason: pain/headache Last Admin: 11/06/17 03:30 Dose: 650 mg Multivitamins (Hexavitamin) 1 tab PO DAILY [facility] Last Admin: 11/09/17 10:26 Dose: 1 tab Pantoprazole Sodium (Protonix Ec Tab) 40 mg PO DAILY [facility] Last Admin: 11/09/17 10:26 Dose: 40 mg - Labs Labs: 11/09/17 06:29 11/09/17 06:29 PT 13.3 SECONDS (9.7-12.2) H 11/04/17 19:19 INR 1.2 11/04/17 19:19 APTT 33 SECONDS (21-34) 11/04/17 19:19 - Constitutional Appears: No Acute Distress - Head Exam Head Exam: ATRAUMATIC, NORMAL INSPECTION - Eye Exam Eye Exam: EOMI Pupil Exam: PERRL - ENT Exam ENT Exam: Mucous Membranes Moist - Respiratory Exam Respiratory Exam: Clear to Ausculation Bilateral. absent: Respiratory Distress - Cardiovascular Exam Cardiovascular Exam: REGULAR RHYTHM, +S1, +S2 - GI/Abdominal Exam GI & Abdominal Exam: Normal Bowel Sounds. absent: Guarding, Rigid - Extremities Exam Extremities Exam: Normal Inspection. absent: Calf Tenderness - Neurological Exam Neurological Exam: Alert, Oriented x3 - Skin Skin Exam: Normal Color, Warm Assessment and Plan - Assessment and Plan (Free Text) Assessment: This is a 77 year old female with PMH of COPD, depression, anxiety, anemia, pulmonary embolism, rheumatoid arthritis, HLD, HTN and history of falls presenting to the hospital s/p mechanical fall on 11/04/17. She is being evaluated for cardiac clearance for QUILL PICKING MACHINE OPERATOR shunt placement. Plan: Pre op clearance -moderate risk for surgery -stress test showed no evidence of reversible ischemia, concern for balanced ischemia -received cardiac cath today showing multiple ectatic coronaries -will need ASA, BB, high dose statin, BETSY inhibitor -will start daily plavix after surgery Further recommendations per Dr. Garcia
[2017-11-10] MEDS: Multiple Vitamins Tab PO SCH (09:02)
[2017-11-10] MEDS: Pantoprazole 40 mg EC Tab PO SCH (09:02)
--- NOTE | 2017-11-10 09:25 | PN ---
DATE: 11/10/2017 SUBJECTIVE: The patient is a 77-year-old female. The patient was seen and examined at the bedside on 11/09/2017. Looking comfortable. No change in the status. No nausea, vomiting, or diarrhea. No headache. No dizziness. No fever. No chills. No acute reported overnight. The patient completed her stress test and went for catheterization. PHYSICAL EXAMINATION: VITAL SIGNS: Temperature 97.9, pulse 92, respiratory rate 20, blood pressure 125/84, pulse oximetry 98%. HEENT: Head: Atraumatic. Eyes: PERRLA. Extraocular muscles intact. Conjunctivae clear. Nose patent. Mucous membranes moist. NECK: Supple. No carotid bruit. No JVD or thyromegaly. CHEST: Bilaterally symmetrical. HEART: S1 and S2 positive. LUNGS: Clear to auscultation. ABDOMEN: Soft. Bowel sounds present. No organomegaly. EXTREMITIES: No edema. No cyanosis. NEUROLOGIC: The patient is awake and alert. Moving all four extremities. No focal deficits. MEDICATIONS: Tylenol, multivitamins, Protonix. LABORATORY DATA: White blood cell 6.6, hemoglobin 10.6, hematocrit 32.5, platelets 154. Sodium 139, potassium 3.7, BUN 22, creatinine 0.7, glucose 125. ASSESSMENT AND PLAN: Ms. Genet Rendon is a 77-year-old lady with anemia, renal insufficiency, hyperglycemia, with a history of chronic obstructive pulmonary disease, depression, anxiety, pulmonary embolism, rheumatoid arthritis, hypercholesterolemia, hypertension, history of fall and came with mechanical fall, has history of normal pressure hydrocephalus. Neurosurgeon wants ventriculoperitoneal shunt placement. The patient was evaluated by the host/hostess restaurant for cardiac clearance. Stress test was done, shows no evidence of reversible ischemia, concern for bilateral ischemia. Cardiac catheterization of multiple ectatic coronaries, need aspirin, beta-blockers, and high dose of statin, angiotensin-converting enzyme inhibitors, but according to Dr. Garcia we will start Plavix after surgery. Compressor Service Technician cleared the patient for surgery. She is at high risk for surgery, but because of multiple falls, as per neurosurgeon the patient needs surgery. Gastrointestinal and deep venous thrombosis prophylaxis. Repeat labs. We will follow up. Rayne Mustafa MD [facility] # [id number] [place]
--- NOTE | 2017-11-10 13:35 | PN ---
DATE: 11/08/2017 SUBJECTIVE: The patient is a 77-year-old female. The patient was seen and examined at bedside on 11/08 18 looking comfortable. No fever. No chills. No acute event reported overnight. No headache or dizziness. No fever. No chills. No hematuria or hematochezia. No swelling of the leg. PHYSICAL EXAMINATION: VITAL SIGNS: Temperature 98.5, pulse 93, respiratory rate 20, blood pressure 137/89, and pulse oximetry 96. HEENT: Head, normocephalic and atraumatic. Eyes, PERRLA. Extraocular muscles intact. Conjunctivae clear. Nose patent. Mucous membrane moist. NECK: Supple. No carotid bruit. No JVD or thyromegaly. CHEST: Bilaterally symmetrical. HEART: S1 and S2 positive. LUNGS: Clear to auscultation. ABDOMEN: Soft. Bowel sounds present. No organomegaly. EXTREMITIES: No edema. No cyanosis. NEUROLOGIC: The patient is awake and alert. Moving all four extremities. No focal deficits. MEDICATIONS: Tylenol, multivitamins, and Protonix. LABORATORY DATA: White blood cells 6.4, hemoglobin 11, hematocrit 33.6, and platelets 156. Sodium 130, potassium 4, BUN 12, creatinine 0.4, and glucose 100. ASSESSMENT AND PLAN: Ms. Justice De León is a 77-year-old lady with history of frequent falls, came with fall. Neurosurgical consult called. They are planning for surgery. Preoperative cardiac clearance requested. The patient went for stress test. Hand Roller Engraver is on the case. History of anemia, normal pressure hydrocephalus, degenerative joint disease, gastrointestinal and deep vein thrombosis prophylaxis. Continue present treatment. This patient was evaluated by the nursing staff. Rayne Mustafa MD [place]
--- NOTE | 2017-11-10 14:38 | CP.PCM.PN ---
Subjective - Date & Time of Evaluation Date of Evaluation: 11/10/17 Time of Evaluation: 14:30 - Subjective Subjective: Cardiology Progress Note Isis Hendricks, PGY1 note for Dr. Garcia Patient is cleared for surgery; she is moderate risk. Patient seen and examined today. No acute events reported overnight. Offers no complaints today. Plan for GSE MECHANIC shunt surgery tomorrow. Objective - Vital Signs/Intake and Output Vital Signs (last 24 hours): Temp Pulse Resp BP Pulse Ox 98.7 F 94 H 20 105/76 96 11/10/17 14:20 11/10/17 08:15 11/10/17 08:15 11/10/17 08:15 11/10/17 08:15 - Medications Medications: Current Medications Acetaminophen (Tylenol 325mg Tab) 650 mg PO Q6 PRN PRN Reason: pain/headache Last Admin: 11/10/17 14:20 Dose: 650 mg Multivitamins (Hexavitamin) 1 tab PO DAILY [facility] Last Admin: 11/10/17 09:02 Dose: 1 tab Pantoprazole Sodium (Protonix Ec Tab) 40 mg PO DAILY [facility] Last Admin: 11/10/17 09:02 Dose: 40 mg - Labs Labs: 11/09/17 06:29 11/09/17 06:29 PT 13.3 SECONDS (9.7-12.2) H 11/04/17 19:19 INR 1.2 11/04/17 19:19 APTT 33 SECONDS (21-34) 11/04/17 19:19 - Constitutional Appears: No Acute Distress - Head Exam Head Exam: ATRAUMATIC, NORMAL INSPECTION - Eye Exam Eye Exam: EOMI Pupil Exam: PERRL - ENT Exam ENT Exam: Mucous Membranes Moist - Respiratory Exam Respiratory Exam: Clear to Ausculation Bilateral. absent: Respiratory Distress - Cardiovascular Exam Cardiovascular Exam: REGULAR RHYTHM, +S1, +S2 - GI/Abdominal Exam GI & Abdominal Exam: Normal Bowel Sounds. absent: Guarding, Rigid - Extremities Exam Extremities Exam: Normal Inspection. absent: Calf Tenderness - Neurological Exam Neurological Exam: Alert, Awake - Skin Skin Exam: Normal Color, Warm Assessment and Plan - Assessment and Plan (Free Text) Assessment: This is a 77 year old female with PMH of COPD, depression, anxiety, anemia, pulmonary embolism, rheumatoid arthritis, HLD, HTN and history of falls presenting to the hospital s/p mechanical fall on 11/04/17. She is being evaluated for cardiac clearance for GSE MECHANIC shunt placement. Plan: Pre op clearance -cleared for surgery; moderate risk -stress test showed no evidence of reversible ischemia, concern for balanced ischemia -received cardiac cath 11/09/17 showing multiple ectatic coronaries -will need ASA, BB, high dose statin, BETSY inhibitor -will start daily plavix after surgery Further recommendations per Dr. Garcia
--- NOTE | 2017-11-10 15:24 | PROCN ---
DATE OF PROCEDURE: 11/09/2017 INDICATIONS: Genet Rendon is a 77-year-old female who presented to [facility] for the complaints of headaches and was worked up by preoperative cardiovascular risk stratification. Prior to her surgical COOKER TENDER shunting, she underwent a nuclear stress test, which showed evidence of transient ischemic dilatation, therefore was brought to the label rewinder for further evaluation and treatment. PROCEDURES PERFORMED: Left heart catheterization with selective left and right coronary angiogram, left ventriculogram, 6-Montserratian right femoral arterial access, Mynx closure device for hemostasis. ANGIOGRAPHIC FINDINGS: Left main is a large sized vessel, bifurcates into LAD and circ. Left anterior descending artery has an ectatic segment extending up to the mid segment, gives off two small diagonal branches. Left circumflex also has ectatic segment in the proximal area, gives off obtuse marginal branch, free of any obstructive disease. Slow flow noted in the left coronary systems. Right coronary artery ectatic with slow flow noted with mid 50% stenosis. IMPRESSION: Nonobstructive coronary artery disease, ectatic , normal ejection fraction. RECOMMENDATIONS: The patient is to continue aggressive medical management and risk factor modification. Elfego Garcia MD
[2017-11-10 16:28] LABS: HEMOGLOBIN 10.5 g/dL (11.0-16.0); MEAN CELL VOLUME 73.4 fL (81.0-99.0); MEAN CORPUSCULAR HEMOGLOBIN 23.8 pg (27.0-31.0); MEAN CORPUSCULAR HGB CONC 32.5 g/dL (33.0-37.0); MEAN PLATELET VOLUME 9.5 fL (7.2-11.7); RBC 4.41 Mil/uL (3.80-5.20); RED CELL DISTRIBUTION WIDTH 16.6 % (11.5-14.5); WHITE BLOOD COUNT 7.1 K/uL (4.8-10.8)
[2017-11-10 16:37] LABS: INR 1.2; PROTHROMBIN TIME 12.9 SECONDS (9.7-12.2)
[2017-11-10 17:02] LABS: BLOOD UREA NITROGEN 17 mg/dL (7-17); CALCIUM 9.2 mg/dl (8.6-10.4); GFR NON-AFRICAN AMERICAN > 60
[2017-11-11] MEDS ORDERED: Bacitracin 50,000 UNIT in Sodium Chloride 0.9% Irrig 1,000 ML IR SCH (06:30)
[2017-11-11 06:35] LABS: HEMOGLOBIN 10.4 g/dL (11.0-16.0); MEAN CELL VOLUME 73.3 fL (81.0-99.0); MEAN CORPUSCULAR HEMOGLOBIN 23.6 pg (27.0-31.0); MEAN CORPUSCULAR HGB CONC 32.2 g/dL (33.0-37.0); MEAN PLATELET VOLUME 10.2 fL (7.2-11.7); RBC 4.41 Mil/uL (3.80-5.20); RED CELL DISTRIBUTION WIDTH 16.5 % (11.5-14.5); WHITE BLOOD COUNT 6.9 K/uL (4.8-10.8)
[2017-11-11] MEDS ORDERED: ceFAZolin 1 gm in NS 0 GM/0 ML BAG IVPB ONE (06:37)
[2017-11-11] MEDS ORDERED: Absorbable Gelatin Sponge Size 100 ONE ×2 (06:37→07:54)
[2017-11-11] MEDS ORDERED: cefTRIAXone 1 gm 1 GM/100 ML BAG IVPB ONE (06:38)
[2017-11-11] MEDS ORDERED: Lidocaine/Epinephrine 1% 1:100000 10 ML IJ ONE (06:38)
[2017-11-11] MEDS ORDERED: Thrombin Topical 5,000 Int Units Spray Kit ONE (06:38)
[2017-11-11] MEDS ORDERED: Bacitracin Ointment 30 GM TUBE ONE (06:38)
[2017-11-11 06:39] LABS: BLOOD UREA NITROGEN 21 mg/dL (7-17); CALCIUM 9.1 mg/dl (8.6-10.4); GFR NON-AFRICAN AMERICAN > 60
--- NOTE | 2017-11-11 06:53 | PN ---
DATE: 11/11/2017 SUBJECTIVE: The patient is a 77-year-old female. The patient is seen and examined at bedside on 11/10/2017. Looking comfortable. No change in her status. No acute events noted overnight. Waiting for the surgery. No fever. No chills. PHYSICAL EXAMINATION: VITAL SIGNS: Temperature 98.7, pulse 94, respiratory rate 20, blood pressure 105/70, pulse oximetry 96. HEENT: Head, normocephalic and atraumatic. Eyes, PERRLA. Extraocular muscles intact. Conjunctivae clear. Nose patent. Mucous membrane moist. NECK: Supple. No carotid bruit. No JVD or thyromegaly. CHEST: Bilaterally symmetrical. HEART: S1 and S2 positive. LUNGS: Clear to auscultation. ABDOMEN: Soft. Bowel sounds present. No organomegaly. EXTREMITIES: No edema. No cyanosis. NEUROLOGIC: The patient is awake and alert. Moving all four extremities. No focal deficits. MEDICATIONS: Tylenol, multivitamins, and pantoprazole. LABORATORY DATA: White blood cells 6.6, hemoglobin 10.2, hematocrit 32.5, and platelets 164. Sodium 139, potassium 3.7, BUN 22, creatinine 0.5, glucose 125. ASSESSMENT AND PLAN: The patient is a 77-year-old lady with anemia, renal insufficiency, hyperglycemia, has multiple falls, chronic obstructive pulmonary disease, depression, anxiety, pulmonary embolism, rheumatoid arthritis, hypercholesterolemia, hypertension who was admitted for mechanical fall. The patient got evaluation for cardiac clearance for PHOTOGRAPHIC PLATE MAKER shunt placement. Certified Massage Therapist cleared the patient. The patient will go for surgery tomorrow. Gastrointestinal and deep venous thrombosis prophylaxis. Repeat labs. We will follow up. Rayne Mustafa MD MTDD
[2017-11-11] MEDS ORDERED: Etomidate 20 mg/10ml Inj IV ONE (07:44)
[2017-11-11] MEDS ORDERED: Propofol 10 mg/ml Inj (20 ML) ONE (07:44)
[2017-11-11] MEDS ORDERED: Labetalol 5mg/ml (4ml) ONE (07:44)
[2017-11-11] MEDS ORDERED: Phenylephrine 10 mg/ml Inj ONE (07:44)
[2017-11-11] MEDS ORDERED: Rocuronium 10 mg/ml (5 ml) ONE (07:49)
[2017-11-11] MEDS ORDERED: Succinylcholine Chloride 20 mg/ml Syr (5 ml) IV ONE (07:49)
[2017-11-11] MEDS ORDERED: ePHEDrine 50 mg/ml Inj ONE (07:49)
[2017-11-11] MEDS ORDERED: Absorbable Gelatin Sponge Size 12-7 ONE (07:54)
[2017-11-11] MEDS ORDERED: GENTAMICIN SULFATE IVPB SCH ×2 (08:30→09:00)
[2017-11-11] MEDS ORDERED: SODIUM CHLORIDE 0.9% IVPB SCH ×2 (08:30→09:00)
[2017-11-11] MEDS ORDERED: Vancomycin 10 MG in Sodium Chloride 0.9% 1 ML IVPB SCH (09:00)
[2017-11-11] MEDS ORDERED: Neostigmine Methylsulfate 3mg/3ml Syringe IV ONE (09:13)
[2017-11-11] MEDS ORDERED: HYDROmorphone 0.5 mg/0.5 ml ISec IVP PRN (09:49)
[2017-11-11] MEDS ORDERED: Labetalol 25mg/5ml Syringe IVP PRN (09:49)
[2017-11-11] MEDS: Potassium Ch 20mEq in D5-1/2NS 1,000 ML IV SCH (10:30)
[2017-11-11] MEDS: HYDROmorphone 0.5 mg/0.5 ml ISec IVP PRN ×3 (11:02→18:43)
[2017-11-11] MEDS ORDERED: HYDROmorphone 0.5 mg/0.5 ml ISec ONE (11:03)
[2017-11-11 11:59] LABS: FLUID TYPE SPINAL FLUID
--- NOTE | 2017-11-11 12:29 | CP.PCM.CON ---
History of Present Illness - History of Present Illness History of Present Illness: Patient is a 77 year old female with past medical history of COPD, depression, anxiety, anemia, pulmonary embolism, rheumatoid arthritis, HLD, HTN and history of falls presenting with chief complaint of head trauma, found to have normal pressure hydrocephalus now s/p LINE OUT MAN shunt placement. Patient complains of a mild throbbing headache on the right side where the surgical incision is. Per daughter, patient is at baseline behavior. Denies vision or hearing changes, dizziness, chest pain, shortness of breath, abdominal pain. Review of Systems - Review of Systems All systems: reviewed and no additional remarkable complaints except (as stated in HPI) Past Patient History - Past Medical History & Family History Past Medical History?: Yes - Past Social History Smoking Status: Current Some Days Smoker - CARDIAC Hx Hypercholesterolemia: Yes Hx Hypertension: Yes - PULMONARY Hx Chronic Obstructive Pulmonary Disease (COPD): Yes - NEUROLOGICAL Hx Neurological Disorder: No - HEENT Hx HEENT Problems: No - RENAL Hx Chronic Kidney Disease: No - ENDOCRINE/METABOLIC Hx Diabetes Mellitus Type 2: Yes - HEMATOLOGICAL/ONCOLOGICAL Hx Anemia: Yes Hx Human Immunodeficiency Virus (HIV): No - INTEGUMENTARY Hx Dermatological Problems: No - MUSCULOSKELETAL/RHEUMATOLOGICAL Hx Rheumatoid Arthritis: Yes - GASTROINTESTINAL Hx Gastrointestinal Disorders: Yes - GENITOURINARY/GYNECOLOGICAL Hx Genitourinary Disorders: No - PSYCHIATRIC Hx Substance Use: No - SURGICAL HISTORY Hx Cholecystectomy: Yes - ANESTHESIA Hx Anesthesia: Yes Hx Anesthesia Reactions: No Hx Malignant Hyperthermia: No Meds Allergies/Adverse Reactions: Allergies Allergy/AdvReac Type Severity Reaction Status Date / Time No Known Allergies Allergy Verified 10/09/17 03:11 - Medications Medications: Current Medications Acetaminophen (Tylenol 325mg Tab) 650 mg PO Q6 PRN PRN Reason: pain/headache Last Admin: 11/10/17 14:20 Dose: 650 mg Hydromorphone HCl (Dilaudid) 0.5 mg IVP Q15M PRN PRN Reason: Pain, severe (8-10) Last Admin: 11/11/17 11:02 Dose: 0.5 mg Vancomycin HCl 10 mg/ Sodium (Chloride) 1 mls @ 10 mls/hr IVPB ONCE [facility] Gentamicin Sulfate 10 mg/ (Sodium Chloride) 1 mls @ 50 mls/hr IVPB ONCE [facility] Potassium Chloride/Dextrose/Sod Cl (Potassium Chl 20 Meq In D5-1/2ns) 1,000 mls @ 60 mls/hr IV .[id number] [facility] Last Admin: 11/11/17 10:30 Dose: 60 mls Multivitamins (Hexavitamin) 1 tab PO DAILY [facility] Last Admin: 11/10/17 09:02 Dose: 1 tab Oxycodone/Acetaminophen (Percocet 5/325 Mg Tab) 1 tab PO Q4H PRN PRN Reason: Pain, Mild (1-3) Stop: 11/14/17 09:42 Pantoprazole Sodium (Protonix Ec Tab) 40 mg PO DAILY [facility] Last Admin: 11/10/17 09:02 Dose: 40 mg Physical Exam - Constitutional Appears: Non-toxic, No Acute Distress - Head Exam Head Exam: NORMOCEPHALIC Additional comments: dressing to right side of head clean, dry and intact - Eye Exam Eye Exam: EOMI, Normal appearance Pupil Exam: NORMAL ACCOMODATION, PERRL - ENT Exam ENT Exam: Mucous Membranes Moist - Neck Exam Neck exam: Negative for: Lymphadenopathy, Tenderness Additional comments: Slight erythema along placement of vp corporate development shunt - Respiratory Exam Respiratory Exam: Clear to Auscultation Bilateral, NORMAL BREATHING PATTERN. absent: Respiratory Distress - Cardiovascular Exam Cardiovascular Exam: REGULAR RHYTHM, +S1, +S2 - GI/Abdominal Exam GI & Abdominal Exam: Normal Bowel Sounds, Soft. absent: Tenderness Additional comments: Surgical incision with aline on RUQ clean, dry, intact with no signs of bleeding Right groin dressing clean, dry, intact with no signs of bleeding - Extremities Exam Extremities exam: Positive for: normal capillary refill, normal inspection, pedal pulses present. Negative for: calf tenderness - Back Exam Back exam: NORMAL INSPECTION - Neurological Exam Neurological exam: Alert, CN II-XII Intact, Oriented x3 - Psychiatric Exam Psychiatric exam: Normal Affect - Skin Skin Exam: Dry, Intact, Normal Color Results - Vital Signs Recent Vital Signs: Last Vital Signs Temp 98 F 11/11/17 11:30 Pulse 93 H 11/11/17 11:30 Resp 19 11/11/17 11:30 BP 121/68 11/11/17 11:30 Pulse Ox 97 11/11/17 11:30 - Labs Result Diagrams: 11/11/17 06:15 11/11/17 06:15 Labs: Laboratory Results - last 24 hr 11/10/17 11/10/1711/10/18 16:21 16:21 16:21 WBC 7.1 RBC 4.41 Hgb 10.5 L Hct 32.4 L MCV 73.4 L MCH 23.8 L MCHC 32.5 L RDW 16.6 H Plt Count 177 MPV 9.5 PT 12.9 H INR 1.2 APTT 33 Sodium 137 Potassium 4.8 Chloride 97 L Carbon Dioxide 31 H Anion Gap 15 BUN 17 Creatinine 0.6 L Est GFR ( Amer) > 60 Est GFR (Non-Af Amer) > 60 Random Glucose 102 Calcium 9.2 Fluid Type 11/11/17 11/11/17 11/11/17 06:15 06:15 11:58 WBC 6.9 RBC 4.41 Hgb 10.4 L Hct 32.3 L MCV 73.3 L MCH 23.6 L MCHC 32.2 L RDW 16.5 H Plt Count 174 MPV 10.2 PT INR APTT Sodium 140 Potassium 4.1 Chloride 100 Carbon Dioxide 30 Anion Gap 14 BUN 21 H Creatinine 0.4 L Est GFR ( Amer) > 60 Est GFR (Non-Af Amer) > 60 Random Glucose 107 H Calcium 9.1 Fluid Type Spinal fluid Assessment & Plan - Assessment and Plan (Free Text) Plan: 77 year old female with past medical history of COPD, depression, anxiety, anemia, pulmonary embolism, rheumatoid arthritis, HLD, HTN and history of falls presenting with chief complaint of head trauma, found to have normal pressure hydrocephalus now s/p LINE OUT MAN shunt placement. 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 Hernesto Tubbs PGY-1 - Date & Time Date: 11/11/17 Time: 13:00
[2017-11-11 13:19] LABS: CSF APPEARANCE BLOODY (CLEAR); CSF VOLUME 1 mL (0-1)
[2017-11-11] MEDS: Multiple Vitamins Tab PO SCH ×2 (14:08→18:33)
--- NOTE | 2017-11-11 18:20 | CP.PCM.PN ---
Subjective - Date & Time of Evaluation Date of Evaluation: 11/11/17 Time of Evaluation: 18:17 - Subjective Subjective: Cardiology Progress Note Isis Hendricks, PGY1 note for Dr. Garcia Patient seen and examined today. She is s/p SERVICE MECHANIC shunt surgery today, currently being monitored in the ICU. She offers no complaints at this time except for mild dull pain at surgery site on right posterior scalp. She denies headaches, blurry vision, fevers, numbness, tingling, swelling, CP, SOB and urinary complaints. Objective - Vital Signs/Intake and Output Vital Signs (last 24 hours): Temp Pulse Resp BP Pulse Ox 98 F 103 H 18 117/97 H 95 11/11/17 11:30 11/11/17 18:10 11/11/17 18:10 11/11/17 17:42 11/11/17 18:10 Intake and Output: 11/11/17 11/11/17 06:59 18:59 Intake Total 810 Output Total 240 Balance 570 - Medications Medications: Current Medications Acetaminophen (Tylenol 325mg Tab) 650 mg PO Q6 PRN PRN Reason: pain/headache Last Admin: 11/10/17 14:20 Dose: 650 mg Hydromorphone HCl (Dilaudid) 0.5 mg IVP Q15M PRN PRN Reason: Pain, severe (8-10) Last Admin: 11/11/17 11:02 Dose: 0.5 mg Vancomycin HCl 10 mg/ Sodium (Chloride) 1 mls @ 10 mls/hr IVPB ONCE [facility] Gentamicin Sulfate 10 mg/ (Sodium Chloride) 1 mls @ 50 mls/hr IVPB ONCE [facility] Potassium Chloride/Dextrose/Sod Cl (Potassium Chl 20 Meq In D5-1/2ns) 1,000 mls @ 60 mls/hr IV .[id number] [facility] Last Admin: 11/11/17 10:30 Dose: 60 mls Influenza Virus Vaccine (Fluzone Quad [id number]) 60 mcg IM .ONCE ONE Stop: 11/14/17 10:01 Multivitamins (Hexavitamin) 1 tab PO DAILY [facility] Last Admin: 11/10/17 09:02 Dose: 1 tab Oxycodone/Acetaminophen (Percocet 5/325 Mg Tab) 1 tab PO Q4H PRN PRN Reason: Pain, Mild (1-3) Stop: 11/14/17 09:42 Pantoprazole Sodium (Protonix Ec Tab) 40 mg PO DAILY [facility] Last Admin: 11/10/17 09:02 Dose: 40 mg - Labs Labs: 11/11/17 06:15 11/11/17 06:15 PT 12.9 SECONDS (9.7-12.2) H 11/10/17 16:21 INR 1.2 11/10/17 16:21 APTT 33 SECONDS (21-34) 11/10/17 16:21 - Constitutional Appears: No Acute Distress - Head Exam Head Exam: ATRAUMATIC, NORMAL INSPECTION Additional comments: right posterior head has incision scar that is not grossly bleeding - Eye Exam Eye Exam: EOMI Pupil Exam: PERRL - ENT Exam ENT Exam: Mucous Membranes Moist - Respiratory Exam Respiratory Exam: Clear to Ausculation Bilateral. absent: Respiratory Distress - Cardiovascular Exam Cardiovascular Exam: REGULAR RHYTHM, +S1, +S2 - GI/Abdominal Exam GI & Abdominal Exam: Normal Bowel Sounds. absent: Guarding, Rigid - Extremities Exam Extremities Exam: Normal Inspection. absent: Calf Tenderness - Neurological Exam Neurological Exam: Alert, Oriented x3 - Skin Skin Exam: Normal Color, Warm Assessment and Plan - Assessment and Plan (Free Text) Assessment: This is a 77 year old female with PMH of COPD, depression, anxiety, anemia, pulmonary embolism, rheumatoid arthritis, HLD, HTN and history of falls presenting to the hospital s/p mechanical fall on 11/04/17. She is s/p SERVICE MECHANIC shunt surgery today. Plan: Pre op clearance -s/p SERVICE MECHANIC shunt surgery today, no post operative complications -stress test showed no evidence of reversible ischemia, concern for balanced ischemia -received cardiac cath 11/09/17 showing multiple ectatic coronaries -will need ASA, BB, high dose statin, BETSY inhibitor -will start daily plavix after surgery Further recommendations per Dr. Garcia
[2017-11-11] MEDS: Pantoprazole 40 mg EC Tab PO SCH (18:33)
[2017-11-12] MEDS: Oxycodone/Acetaminophen 5/325 mg Tab PO PRN ×4 (00:40→18:42)
[2017-11-12] MEDS: Potassium Ch 20mEq in D5-1/2NS 1,000 ML IV SCH (03:20)
--- NOTE | 2017-11-12 03:52 | PN ---
DATE: 11/11/2017 SUBJECTIVE: The patient was seen and examined at the bedside on 11/11/2017. Looking comfortable. S/P TEST MANAGER shunt surgery today. Currently being monitored in the ICU. No fever, no chills. Having dull pain at surgical site on the right posterior scalp. No hematuria or hematochezia. No coughing. No shortness of breath. PHYSICAL EXAMINATION: VITAL SIGNS: Temperature 98, pulse 103, respiratory rate 18, blood pressure 117/97, pulse oximetry 95%. HEENT: Head, has surgery today. Eyes, PERRLA. Extraocular muscles intact. Conjunctiva clear. Nose patent. Mucous membrane moist. NECK: Supple. No carotid bruits or thyromegaly. CHEST: Bilaterally symmetrical. HEART: S1, S2 positive. LUNGS: Clear to auscultation. ABDOMEN: Soft. Bowel sounds present. No organomegaly. EXTREMITIES: No edema. No cyanosis. NEUROLOGIC: The patient is awake, alert. Moving all 4 extremities. No focal deficit. MEDICATIONS: Tylenol, Dilaudid, vancomycin, potassium, insulin, multivitamin, oxycodone, Protonix. LABORATORY DATA: White blood cell 6.9, hemoglobin 10.7, hematocrit 32.3, platelets 174, sodium 140, potassium 4.1, BUN 29, creatinine 0.4, glucose 107. ASSESSMENT AND PLAN: Mrs. Genet Rendon is a 77 years old lady with anemia, renal insufficiency, hyperglycemia with past medical history of chronic obstructive pulmonary disease, depression, anxiety, anemia, pulmonary embolism, rheumatoid arthritis, hypercholesterolemia, hypertension, history of multiple falls. Came to [facility] for mechanical fall. Status post ventriculoperitoneal shunt surgery today by neurosurgeon. No postoperative complications. Stress test had shown no evidence of reversible ischemia, concern for bilateral ischemia. Received cardiac cath showing multiple ectatic coronaries. We will need aspirin, beta-blockers, high dose of statin, BETSY inhibitors. According to portable track crew chief after surgery, they will start Plavix. Meanwhile continue present treatment. GI, DVT prophylaxis. Repeat labs. We will follow. Rayne Mustafa MD [facility]
[2017-11-12 06:22] LABS: BASO % 0.2 % (0.0-2.0); EOS # 0.1 K/uL (0.0-0.7); HEMOGLOBIN 9.6 g/dL (11.0-16.0); LYMPH # 1.3 K/uL (1.0-4.3); LYMPH % 17.4 % (20.0-40.0); MEAN CELL VOLUME 73.4 fL (81.0-99.0); MEAN CORPUSCULAR HEMOGLOBIN 23.2 pg (27.0-31.0); MEAN CORPUSCULAR HGB CONC 31.6 g/dL (33.0-37.0); MEAN PLATELET VOLUME 10.2 fL (7.2-11.7); MONO # 0.6 K/uL (0.0-0.8); MONO % 8.6 % (0.0-10.0); NEUT # 5.3 K/uL (1.8-7.0); NEUT % 72.8 % (50.0-75.0); RBC 4.15 Mil/uL (3.80-5.20); RED CELL DISTRIBUTION WIDTH 16.5 % (11.5-14.5); WHITE BLOOD COUNT 7.3 K/uL (4.8-10.8)
[2017-11-12 06:42] LABS: ALBUMIN 3.4 g/dL (3.5-5.0); ALT/SGPT 45 U/L (9-52); AST/SGOT 47 U/L (14-36); BILIRUBIN,DIRECT 0.3 mg/dL (0.0-0.4); BLOOD UREA NITROGEN 12 mg/dL (7-17); CALCIUM 8.8 mg/dl (8.6-10.4); GFR NON-AFRICAN AMERICAN > 60
--- NOTE | 2017-11-12 09:37 | CP.PCM.PN ---
Subjective - Date & Time of Evaluation Date of Evaluation: 11/12/17 Time of Evaluation: 09:37 - Subjective Subjective: pod1 a a ox3 no motor deficits minimal headache ok to get oob and ambulate\ Physical therapy clear to go to subacute or home at any time Objective - Vital Signs/Intake and Output Vital Signs (last 24 hours): Temp Pulse Resp BP Pulse Ox 98.4 F 80 20 127/75 98 11/12/17 08:00 11/12/17 08:00 11/12/17 08:00 11/12/17 07:42 11/12/17 08:00 Intake and Output: 11/12/17 11/12/17 06:59 18:59 Intake Total 720 120 Output Total 750 Balance -30 120 - Medications Medications: Current Medications Acetaminophen (Tylenol 325mg Tab) 650 mg PO Q6 PRN PRN Reason: pain/headache Last Admin: 11/10/17 14:20 Dose: 650 mg Potassium Chloride/Dextrose/Sod Cl (Potassium Chl 20 Meq In D5-1/2ns) 1,000 mls @ 60 mls/hr IV .[id number] [facility] Last Admin: 11/12/17 03:20 Dose: 60 mls/hr Influenza Virus Vaccine (Fluzone Quad [id number]) 60 mcg IM .ONCE ONE Stop: 11/14/17 10:01 Multivitamins (Hexavitamin) 1 tab PO DAILY [facility] Last Admin: 11/11/17 18:33 Dose: 1 tab Oxycodone/Acetaminophen (Percocet 5/325 Mg Tab) 1 tab PO Q4H PRN PRN Reason: Pain, Mild (1-3) Stop: 11/14/17 09:42 Last Admin: 11/12/17 05:36 Dose: 1 tab Pantoprazole Sodium (Protonix Ec Tab) 40 mg PO DAILY [facility] Last Admin: 11/11/17 18:33 Dose: 40 mg - Labs Labs: 11/12/17 06:17 11/12/17 06:17 PT 12.9 SECONDS (9.7-12.2) H 11/10/17 16:21 INR 1.2 11/10/17 16:21 APTT 33 SECONDS (21-34) 11/10/17 16:21
[2017-11-12] MEDS: Pantoprazole 40 mg EC Tab PO SCH (09:38)
[2017-11-12] MEDS: Multiple Vitamins Tab PO SCH (09:38)
[2017-11-13 00:31] VITALS: RESP 20
--- NOTE | 2017-11-13 01:03 | PN ---
DATE: 11/12/2017 SUBJECTIVE: The patient is seen and examined at bedside on 11/12/2017, looking comfortable and oriented x3. No fever. No chills. No headache. No dizziness. No hematuria. No hematochezia. No swelling of the legs. PHYSICAL EXAMINATION: VITAL SIGNS: Temperature 98.4, pulse 80, respiratory rate 20, blood pressure 127/75, pulse oximetry 98%. HEENT: Head is normocephalic and atraumatic. Eyes PERRLA. Extraocular muscles intact. Conjunctivae clear. Nose patent. Mucous membranes moist. NECK: Supple. No carotid bruits. No JVD. No thyromegaly. CHEST: Bilaterally symmetrical. HEART: S1 and S2 positive. LUNGS: Clear to auscultation. ABDOMEN: Soft. Bowel sounds present. No organomegaly. EXTREMITIES: No edema. No cyanosis. NEUROLOGIC: The patient is awake and alert. Moving all 4 extremities. No focal deficits. MEDICATIONS: Tylenol, potassium, multivitamins, oxycodone, pantoprazole. LABORATORY DATA: White blood cell is 7.3, hemoglobin 9.2, hematocrit 30.5, platelets 176. Sodium 136, potassium 4.1, BUN 12, creatinine 0.4, glucose 113. ASSESSMENT AND PLAN: Mrs. Genet Rendon is a 77-year-old lady with anemia, hyperglycemia, status post ventriculoperitoneal shunt surgery was admitted in ICU cleared by the neurosurgery for subacute rehabilitation and physical therapy. The patient has a history of chronic obstructive pulmonary disease, depression and anxiety, anemia, pulmonary embolism, rheumatoid arthritis, hypercholesterolemia, hypertension, history of falls. Chest x-ray was done by Dr. Garcia. Continue present treatment. Repeat labs. We will try to do physical therapy. Rayne Mustafa MD [facility]
[2017-11-13] MEDS: Oxycodone/Acetaminophen 5/325 mg Tab PO PRN ×3 (07:23→19:23)
[2017-11-13] MEDS: Multiple Vitamins Tab PO SCH (09:12)
[2017-11-13] MEDS: Pantoprazole 40 mg EC Tab PO SCH (09:12)
--- NOTE | 2017-11-14 04:27 | PN ---
DATE: 11/13/2017 SUBJECTIVE: The patient is a 77-year-old female. The patient is seen and examined at the bedside on 11/13/2017, looking comfortable, complaining about headache, especially at the surgical site. I told her to sleep on the other side. No fever, no chills. No nausea, vomiting, or diarrhea. No hematuria or hematochezia. PHYSICAL EXAMINATION: VITAL SIGNS: Temperature 97.6, pulse 87, blood pressure 148/91, respiratory rate 20, pulse oximetry 95%. HEENT: Head is normocephalic, status post surgery. Eyes PERRLA. Extraocular muscles intact. Conjunctivae clear. Nose patent. Mucous membranes moist. NECK: Supple. No carotid bruits. No JVD. No thyromegaly. CHEST: Bilaterally symmetrical. HEART: S1 and S2 positive. LUNGS: Clear to auscultation. ABDOMEN: Soft. Bowel sounds present. No organomegaly. EXTREMITIES: No edema. No cyanosis. NEUROLOGIC: The patient is awake and alert. Moving all 4 extremities. No focal deficits. MEDICATIONS: Influenza injection, multivitamins, oxycodone, Protonix, Tylenol. LABORATORY DATA: White blood cell 7.3, hemoglobin 9.6, hematocrit 38.5, platelets 173. Sodium 136, potassium 4.1, BUN 12, creatinine 0.4, glucose 113. AST 47. ASSESSMENT AND PLAN: Ms. Genet Rendon is a 77-year-old female with anemia, hyperglycemia, abnormal liver function test, status post ventriculoperitoneal shunt surgery, was admitted in the ICU, cleared by Neurosurgery for subacute rehabilitation center and physical therapy. The patient has a history of chronic obstructive pulmonary disease, depression and anxiety, anemia, pulmonary embolism, rheumatoid arthritis, hypercholesterolemia, hypertension, history of falls. Chest x-ray was done by Dr. Garcia. Now, the patient is complaining about headache. I gave her Percocet. Only Tylenol is not helping her. Getting physical therapy. Trying to arrange rehab. We will follow up. Rayne Mustafa MD
[2017-11-14] MEDS: Oxycodone/Acetaminophen 5/325 mg Tab PO PRN ×2 (05:03→09:09)
--- NOTE | 2017-11-14 07:03 | OP ---
PROCEDURE DATE: 11/11/2017 SURGEON: Frederick Vuong MD CO-SURGEON: Irene Vee MD PREOPERATIVE DIAGNOSIS: Normal pressure hydrocephalus. POSTOPERATIVE DIAGNOSIS: Normal pressure hydrocephalus. PROCEDURE: Right ventriculoperitoneal shunt. DESCRIPTION OF PROCEDURE: The patient was brought to the operating room, intubated appropriately. Her head was turned to the left, and the area of the parietal boss hair was clipped, and the head, neck, thorax and abdomen were prepped and draped in usual manner. A small question manny incision was made over the parietal boss after instilling with 7 mL of lidocaine with epinephrine. The flap was retracted back in the usual manner and a solitary cathryn hole was made after opening the pericranium over the cathryn hole. Solitary cathryn hole was made. The underlying dura was coagulated with the bipolar electrocautery and the alba-arachnoid was coagulated. A ventricular catheter was then passed in a single passage into the ventricle. The cath was then cut and attached to the proximal port as a Strata programmable valve set to 1.5 and the proximal port was tied with a 2-0 tie. The distal port had a piece of tubing attached to it, which was clamped and shunt flowed well and pumped nicely. By this time, Dr. Vee finished the abdominal portion and we passed a shunt passer up from the abdomen to the cranial wound. Through this, a distal catheter was passed and the proximal end of the distal catheter was attached to the valve distal port using a 2-0 silk tie. The remainder of the catheter was pulled down into the abdomen down through the area where the shunt tubing was passed and the valve was pumped and spontaneously flowed CHF, which was clear. Specimen was obtained and sent for routine studies. While Dr. Vee completed inserting a distal limb into the abdomen, the cranial wound was irrigated. The valve and the proximal catheter were tacked to the pericranium using 4-0 nylon and the scalp was then reapproximated with 3-0 Vicryl and skin aline. Sterile dressings were applied to all wounds. It should be noted that the shunt pumped well after the distal limb was passed into the abdomen and the wound was closed. The patient was then awoken from anesthesia, found to be moving all extremities, talking appropriately, neurologically intact. Blood loss minimal approximately 25 mL. All counts were correct. Specimen was spinal fluid for routine studies. The patient was taken to recovery room in stable condition. Frederick Vuong MD
[2017-11-14] MEDS: Pantoprazole 40 mg EC Tab PO SCH (09:11)
[2017-11-14] MEDS: Multiple Vitamins Tab PO SCH (09:11)
[2017-11-14] MEDS ORDERED: Influenza Vaccine 60 MCG/0.5 ML SYR (3 yr & up) IM ONE (10:00)
[2017-11-14] MEDS ORDERED: Influenza Virus Vaccine 45 mcg/0.5 ml Syr (36 months - 7 yrs) IM ONE (10:00)
--- NOTE | 2017-11-14 17:39 | CP.PCM.PN ---
Subjective - Date & Time of Evaluation Date of Evaluation: 11/14/17 Time of Evaluation: 17:36 - Subjective Subjective: Cardiology Progress Note Isis Hendricks, PGY1 note for Dr. Garcia Patient seen and examined. Offers no complaints. Patient is POD #4 of ASSEMBLYMAN OR WOMAN shunt surgery. Objective - Vital Signs/Intake and Output Vital Signs (last 24 hours): Temp Pulse Resp BP Pulse Ox 98.4 F 80 20 110/74 95 11/14/17 15:00 11/14/17 15:00 11/14/17 15:00 11/14/17 15:00 11/14/17 15:00 Intake and Output: 11/14/17 11/14/17 06:59 18:59 Intake Total 300 420 Output Total 700 Balance 300 -280 - Medications Medications: Current Medications Acetaminophen (Tylenol 325mg Tab) 650 mg PO Q6 PRN PRN Reason: pain/headache Last Admin: 11/14/17 16:27 Dose: 650 mg Multivitamins (Hexavitamin) 1 tab PO DAILY [facility] Last Admin: 11/14/17 09:11 Dose: 1 tab Pantoprazole Sodium (Protonix Ec Tab) 40 mg PO DAILY [facility] Last Admin: 11/14/17 09:11 Dose: 40 mg - Labs Labs: 11/12/17 06:17 11/12/17 06:17 PT 12.9 SECONDS (9.7-12.2) H 11/10/17 16:21 INR 1.2 11/10/17 16:21 APTT 33 SECONDS (21-34) 11/10/17 16:21 - Constitutional Appears: No Acute Distress - Head Exam Head Exam: NORMAL INSPECTION Additional comments: posterior right sided scalp lesion healing with no gross blood/pus appreciated - Eye Exam Eye Exam: EOMI Pupil Exam: PERRL - Respiratory Exam Respiratory Exam: Clear to Ausculation Bilateral, Respiratory Distress - Cardiovascular Exam Cardiovascular Exam: REGULAR RHYTHM, +S1, +S2 - GI/Abdominal Exam GI & Abdominal Exam: Normal Bowel Sounds. absent: Guarding, Rigid - Extremities Exam Extremities Exam: Normal Inspection. absent: Calf Tenderness - Skin Skin Exam: Normal Color, Warm Assessment and Plan - Assessment and Plan (Free Text) Assessment: This is a 77 year old female with PMH of COPD, depression, anxiety, anemia, pulmonary embolism, rheumatoid arthritis, HLD, HTN and history of falls presenting to the hospital s/p mechanical fall on 11/04/17. She is s/p ASSEMBLYMAN OR WOMAN shunt surgery on Tuesday. Plan: Pre op clearance -s/p ASSEMBLYMAN OR WOMAN shunt surgery on Tuesday, POD #4. -stress test showed no evidence of reversible ischemia, concern for balanced ischemia -received cardiac cath 11/09/17 showing multiple ectatic coronaries -will need ASA, BB, high dose statin, BETSY inhibitor -will start daily plavix after surgery Further recommendations per Dr. Garcia
--- NOTE | 2017-11-15 04:02 | PN ---
DATE: 11/14/2017 SUBJECTIVE: The patient is a 77-year-old female. The patient was seen and examined at the bedside, 11/14/2017, GARBAGE PICK UP MAN shunt is for today, status post surgery. No fever. No chills. No headache. No dizziness. PHYSICAL EXAMINATION: VITAL SIGNS: Temperature 98.4, pulse 15, respiratory rate 20, blood pressure 110/74, pulse oximetry 95. HEENT: Head normocephalic and atraumatic. Eyes PERRLA. Extraocular muscles intact. Conjunctivae clear. Nose patent. Mucous membrane moist. NECK: Supple. No carotid bruits, JVD, or thyromegaly. CHEST: Bilaterally symmetrical. HEART: S1, S2 positive. LUNGS: Clear to auscultation. ABDOMEN: Soft. Positive bowel sounds. No organomegaly. EXTREMITIES: No edema. No cyanosis. NEUROLOGIC: The patient is awake and alert. Follows simple commands. MEDICATIONS: Tylenol, multivitamins, Protonix. LABORATORY DATA: White blood cell 7.3, hemoglobin 9.3, hematocrit 30.5, platelets 173. Sodium 136, potassium 4.1, BUN 12, creatinine 0.6, glucose 113. ASSESSMENT AND PLAN: Ms. Genet Rendon is a 77-year-old lady with anemia, hyperglycemia, history of chronic obstructive pulmonary disease, depression, anxiety, pulmonary embolism, rheumatoid arthritis, hypercholesterolemia, hypertension, history of mechanical fall, came to the emergency room with status post mechanical fall. She is status post GARBAGE PICK UP MAN shunt surgery on Tuesday. Stress test was noted by Dr. Garcia, received cardiac catheterization. They started aspirin, beta-blockers, high dose statin, BETSY inhibitors. GI, DVT prophylaxis. Repeat labs. We will follow up. Rayne Mustafa MD [facility]
[2017-11-15] MEDS: Pantoprazole 40 mg EC Tab PO SCH (09:04)
[2017-11-15] MEDS: Multiple Vitamins Tab PO SCH (09:04)
--- NOTE | 2017-11-15 11:13 | CP.PCM.PN ---
Subjective - Date & Time of Evaluation Date of Evaluation: 11/15/17 Time of Evaluation: 11:11 - Subjective Subjective: Cardiology Progress Note Isis Hendricks, PGY1 note for Dr. Garcia Patient to be discharged on Aspirin 81mg daily, Toprol XL 12.5mg daily, Lipitor 40mg daily and lisinopril 2.5mg daily. Patient seen and examined. No acute events reported overnight. Offers no complaints today except for mild headache that is responsive to percocet. Performing P.T. with no difficulties of CP/SOB. Patient is POD #5 of [employer] shunt surgery. Objective - Vital Signs/Intake and Output Vital Signs (last 24 hours): Temp Pulse Resp BP Pulse Ox 98.9 F 84 20 134/68 99 11/15/17 08:34 11/15/17 08:34 11/15/17 08:34 11/15/17 08:34 11/15/17 08:34 Intake and Output: 11/15/17 11/15/17 06:59 18:59 Intake Total 100 Output Total 800 Balance -700 - Medications Medications: Current Medications Acetaminophen (Tylenol 325mg Tab) 650 mg PO Q6 PRN PRN Reason: pain/headache Last Admin: 11/15/17 08:48 Dose: 650 mg Multivitamins (Hexavitamin) 1 tab PO DAILY [facility] Last Admin: 11/15/17 09:04 Dose: 1 tab Pantoprazole Sodium (Protonix Ec Tab) 40 mg PO DAILY [facility] Last Admin: 11/15/17 09:04 Dose: 40 mg - Labs Labs: 11/12/17 06:17 11/12/17 06:17 PT 12.9 SECONDS (9.7-12.2) H 11/10/17 16:21 INR 1.2 11/10/17 16:21 APTT 33 SECONDS (21-34) 11/10/17 16:21 - Constitutional Appears: No Acute Distress - Head Exam Head Exam: ATRAUMATIC, NORMAL INSPECTION Additional comments: posterior right incision site on scalp is non bleeding - Eye Exam Eye Exam: EOMI Pupil Exam: PERRL - ENT Exam ENT Exam: Mucous Membranes Moist - Respiratory Exam Respiratory Exam: Clear to Ausculation Bilateral. absent: Respiratory Distress - Cardiovascular Exam Cardiovascular Exam: REGULAR RHYTHM, +S1, +S2 - GI/Abdominal Exam GI & Abdominal Exam: Normal Bowel Sounds. absent: Guarding, Rigid - Extremities Exam Extremities Exam: Normal Inspection. absent: Calf Tenderness - Neurological Exam Neurological Exam: Alert, Oriented x3 - Skin Skin Exam: Normal Color, Warm Assessment and Plan - Assessment and Plan (Free Text) Assessment: This is a 77 year old female with PMH of COPD, depression, anxiety, anemia, pulmonary embolism, rheumatoid arthritis, HLD, HTN and history of falls presenting to the hospital s/p mechanical fall on 11/04/17. She is s/p [employer] shunt surgery on Tuesday. Patient to be discharged on Aspirin 81mg daily, Toprol XL 12.5mg daily, Lipitor 40mg daily and lisinopril 2.5mg daily. Plan: Pre op clearance -will not start plavix -performing P.T. with no difficulties -s/p [employer] shunt surgery on Tuesday, POD #5. 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 Garcia
[2017-11-15 15:58] VITALS: BP 154/89; PULSE 96; TEMP 98.5; O2SAT 98
[2017-11-15] MEDS ORDERED: Oxycodone/Acetaminophen 5/325 mg Tab PO STA (16:04)
== END 2017-11-15 19:55 | DRG 33 ==
LOC: C.ER 16:34 → C.9E 18:58 → C.5S 19:22 → OBSVTOIN 11-07 10:51 → C.9S 11-11 10:22 → C.9I 11-11 11:59 → C.6T 11-12 14:31
PROVIDERS: ADMIT Internal Medicine; ATTEND Internal Medicine
PROC: 4A023N7 Measurement of Cardiac Sampling and Pressure, Left Heart, Percutaneous Approach (ICD-10-PCS; 2017-11-09)
PROC: B2111ZZ Fluoroscopy of Multiple Coronary Arteries using Low Osmolar Contrast (ICD-10-PCS; 2017-11-09)
PROC: B2151ZZ Fluoroscopy of Left Heart using Low Osmolar Contrast (ICD-10-PCS; 2017-11-09)
PROC: 00160J6 Bypass Cerebral Ventricle to Peritoneal Cavity with Synthetic Substitute, Open Approach (ICD-10-PCS; principal; 2017-11-11 07:45)
DX: G91.2 (Idiopathic) normal pressure hydrocephalus (principal); S09.90XA Unspecified injury of head, initial encounter; M25.552 Pain in left hip; E11.65 Type 2 diabetes mellitus with hyperglycemia; I25.10 Atherosclerotic heart disease of native coronary artery without angina pectoris; I10 Essential (primary) hypertension; J43.9 Emphysema, unspecified; N28.9 Disorder of kidney and ureter, unspecified; D64.9 Anemia, unspecified; W18.30XA Fall on same level, unspecified, initial encounter; M06.9 Rheumatoid arthritis, unspecified; E78.5 Hyperlipidemia, unspecified; E78.00 Pure hypercholesterolemia, unspecified; Z96.643 Presence of artificial hip joint, bilateral; R29.6 Repeated falls; Z91.81 History of falling; Z23 Encounter for immunization; Z86.711 Personal history of pulmonary embolism; Z90.49 Acquired absence of other specified parts of digestive tract; Z87.81 Personal history of (healed) traumatic fracture